=== PATIENT | female | born 1955 | race Caucasian/White ===

== ENCOUNTER 2020-03-16 10:54 | Inpatient (IN) | payer BC ==
[~2020-03-16] VITALS: Ht 170.2 cm; Wt 63.5 kg
--- NOTE | 2020-03-16 11:02 | NUR ---
DR KOO AT [facility] FOR EVAL.
[2020-03-16] MEDS ORDERED: LISI-607 PO (11:12)
[2020-03-16] MEDS ORDERED: AMLO5TAB9 PO (11:12)
[2020-03-16] MEDS ORDERED: TEMA15CA PO (11:12)
[2020-03-16] MEDS ORDERED: VICODIN PO (11:12)
--- NOTE | 2020-03-16 11:33 | NUR ---
Nasal COVID swab collected and sent to LAB.
[2020-03-16] MEDS ORDERED: ONDANSETRON 4 MG/2 ML VIAL ONE (11:34)
[2020-03-16] MEDS ORDERED: MORPHINE SULFATE 4 MG/1 ML DISP.SYRIN ONE ×2 (11:34→12:34)
--- NOTE | 2020-03-16 11:43 | NUR ---
Dr Nelson, surgeon at the bedside. Pt signed consent for surgery.
[2020-03-16 11:47] LABS: *BILIRUBIN,URIN NEGATIVE (NEGATIVE); *BLOOD, URINE NEGATIVE (NEGATIVE); *CLARITY,URINE CLEAR (CLEAR); *COLOR,URINE YELLOW (YELLOW); *KETONES,URINE NEGATIVE (NEGATIVE); LEUKOCYTE ESTERASE ,URINE NEGATIVE (NEGATIVE); NITRITE, URINE NEGATIVE (NEGATIVE); UGLUCOSE NEGATIVE (NEGATIVE)
[2020-03-16 11:57] LABS: BASOPHILS % (AUTO) 1.1 % (0.0-2.0); EOSINOPHILS # (AUTO) 0.3 K/uL (0.0-0.7); HEMATOCRIT 36.5 % (31.2-41.9); HEMOGLOBIN 12.2 g/dL (10.9-14.3); LYMPHOCYTES # (AUTO) 1.3 K/uL (20.0-40.0); LYMPHOCYTES % (AUTO) 30.4 % (20.5-51.5); MEAN CORPUSCULAR HGB CONC 34 g/dL (32.3-35.6); MEAN CORPUSCULAR VOLUME 95.5 fL (75.5-95.3); MONOCYTES # (AUTO) 0.5 K/uL (2.0-10.0); MONOCYTES % (AUTO) 12.1 % (0.0-11.0); NEUTROPHILS % (AUTO) 49.4 % (38.5-71.5); PLATELET COUNT (AUTO) 202 K/uL (179-408); RED BLOOD CELL COUNT(AUTO) 3.82 MIL/uL (3.63-4.92); WHITE BLOOD COUNT (AUTO) 4.1 K/uL (3.8-11.8)
[2020-03-16] MEDS ORDERED: ONDANSETRON 4 MG/2 ML VIAL IV ONE ×2 (12:00→13:00)
[2020-03-16] MEDS ORDERED: MORPHINE SULFATE 4 MG/1 ML DISP.SYRIN IV ONE ×2 (12:00→12:30)
[2020-03-16 12:06] LABS: CREATININE 0.7 mg/dL (0.6-1.3); POTASSIUM 3.9 mmol/L (3.5-5.1)
--- NOTE | 2020-03-16 12:24 | NUR ---
Report given to ALEXANDRO James by ALEXANDRO Guerrero.
[2020-03-16] MEDS ORDERED: SEVOFLURANE 250 ML BOTTLE IH ONE (13:00)
[2020-03-16] MEDS ORDERED: IV LACTATED RINGERS SOLUTION 1,000 ML BAG IV ONE (13:00)
[2020-03-16] MEDS ORDERED: PROPOFOL 200 MG/20 ML BOTTLE IV ONE (13:00)
[2020-03-16] MEDS ORDERED: DEXAMETHASONE SOD PHOSPHATE 4 MG INJ IV ONE (13:00)
[2020-03-16] MEDS ORDERED: EPHEDRINE SULFATE 50 MG/ML AMPUL IM ONE (13:00)
[2020-03-16] MEDS ORDERED: LIDOCAINE-MPF 2% 5 ML VIAL IJ ONE (13:00)
[2020-03-16] MEDS ORDERED: POLYMYXIN B SULFATE 500,000 UNITS, BACITRACIN 50,000 UNITS, NORMAL SALINE 20 ML MC ONE ×3 (13:00)
[2020-03-16] MEDS ORDERED: KETOROLAC TROMETHAMINE 30 MG INJ IM ONE (13:00)
[2020-03-16] MEDS ORDERED: IV NORMAL SALINE 1000 ML BAG IV ONE (13:00)
--- NOTE | 2020-03-16 13:07 | NUR ---
Anup anna in [facility] - 03/16/20 at 1352 by MALIK pRBC started, VSS, will continue to monitor throughout initial administration.
--- NOTE | 2020-03-16 13:16 | NUR ---
Patient transported to OR in stable condition.
[2020-03-16] MEDS ORDERED: MIDAZOLAM HCL 10 MG/2 ML VIAL ONE (13:20)
[2020-03-16] MEDS ORDERED: FENTANYL CITRATE 250 MCG/5 ML AMPUL ONE (13:20)
[2020-03-16] MEDS ORDERED: SEVOFLURANE 250 ML BOTTLE ONE (13:20)
[2020-03-16] MEDS ORDERED: FLUMAZENIL 0.5 MG/5 ML VIAL ONE (13:25)
[2020-03-16] MEDS ORDERED: CLINDAMYCIN PHOSPHATE 600 MG/4 ML VIAL ONE (13:33)
[2020-03-16] MEDS ORDERED: BACITRACIN ZINC OINT 15 GM TUBE ONE (13:39)
[2020-03-16] MEDS ORDERED: BUPIVACAINE PF 0.5% 30 ML VIAL ONE (13:39)
[2020-03-16] MEDS ORDERED: VANCOMYCIN HCL 500 MG VIAL ONE (14:45)
[2020-03-16] MEDS ORDERED: FENTANYL CITRATE 100 MCG/2 ML AMPUL ONE (15:16)
[2020-03-16] MEDS ORDERED: HYDROMORPHONE 1 MG/1 ML DISP.SYRIN ONE ×3 (15:24→15:44)
[2020-03-16 16:13] LABS: BACTERIA,URINE NONE SEEN /HPF (NONE SEEN); RBC,URINE 0-3 /HPF (0-3); SQUAMOUS EPITHELIAL CELL,UR FEW /HPF (NONE SEEN); WBC,URINE 0-3 /HPF (0-3)
[2020-03-16 17:00] VITALS: BP 167/85
[2020-03-16] MEDS: HYDROMORPHONE 1 MG/1 ML DISP.SYRIN IV PRN ×3 (18:24→23:43)
--- NOTE | 2020-03-16 19:30 | NUR ---
RECEIVED PT IN NO ACUTE DISTRESS. IV INTACT.PT COMPLAINING OF THE SURGICAL SITE PAIN. SAFETY AND COMFORT PROVIDED. WILL CONTINUE TO MONITOR.
[2020-03-16] MEDS: OXYCODONE/APAP 5-325 MG TABLET PO PRN ×2 (19:44→22:39)
[2020-03-16 20:37] VITALS: BP 127/58
--- NOTE | 2020-03-17 00:30 | NUR ---
HANDS OFF REPORT TO [facility]. PT IN NO ACUTE DISTRESS. PT COMPLAINING OF BACK AND RIGHT MIDDLE FINGER PAIN. PT GIVEN DILAUDID PRN AND PERCOCET PRN. PT TOLERATED IT WELL. VITAL SIGNS WITHIN NORMAL LIMIT. SAFETY AND COMFORT PROVIDED. WILL CONTINUE TO MONITOR.
[2020-03-17] MEDS: TEMAZEPAM 15 MG CAPSULE PO PRN ×2 (00:46→23:20)
[2020-03-17] MEDS: OXYCODONE/APAP 5-325 MG TABLET PO PRN ×7 (01:55→21:54)
[2020-03-17 04:00] VITALS: BP 163/90
[2020-03-17] MEDS: HYDROMORPHONE 1 MG/1 ML DISP.SYRIN IV PRN ×6 (04:11→20:27)
--- NOTE | 2020-03-17 05:18 | NUR ---
DILAUDID AND PERCOCET,PROVIDING ADEQUATE RELIEF OF PAIN, ICE PACK APPLIED TO AFFECTED AREA.
[2020-03-17 08:00] VITALS: BP 147/81
--- NOTE | 2020-03-17 08:00 | NUR ---
Pt in bed awake AOx4, O2 @ 2L with no SOB or distress noted at this time. Right hand bandaged, with full circulation, per pt right middle finger feels more numb than the left one. Applied new ice pack and elevated on pillow. Dilaudid PRN given as ordered. No other complaints at this time. Bed locked in lowest position with siderails 2x up. Call light and phone within reach
[2020-03-17] MEDS ORDERED: TEMAZEPAM 15 MG CAPSULE PO PRN (11:15)
[2020-03-17 12:51] VITALS: BP 156/76
[2020-03-17] MEDS ORDERED: LISINOPRIL 5 MG TABLET PO ONE (13:15)
[2020-03-17] MEDS ORDERED: AMLODIPINE 5 MG TABLET PO ONE ×2 (13:15→21:00)
[2020-03-17 16:00] VITALS: BP 153/78
[2020-03-17] MEDS ORDERED: DOCUSATE SODIUM 100 MG CAPSULE PO PRN (18:00)
[2020-03-17] MEDS ORDERED: RAMIPRIL 5 MG CAPSULE PO SCH (18:00)
--- NOTE | 2020-03-17 18:38 | NUR ---
Pt in bed awake AOx4, on O2 @ 2L NC with no SOB or distress noted at this time. Complaining of pain on middle finger, pain management given, and ice pack applied, with relief. Ambulated to bathroom. Bed locked in lowest position with siderails 2x up. Call light and phone within reach
--- NOTE | 2020-03-17 19:30 | NUR ---
Received patient in bed , alert x4 with O2 inhalation @ 2LPM via Nasal cannula, c/o pain on right middle finger throbbing pain 9 out 10, RT middle finger noted with dressing intact.IV line in place on left forearm 20 g, no s/s of infiltration.Encouraged Patient to elevate and continue to apply ice pack on Rt middle finger. PRN meds given with relief.Call light with in reach.Will continue to monitor.
[2020-03-17 20:09] VITALS: BP 160/77
[2020-03-17] MEDS ORDERED: RAMIPRIL 5 MG CAPSULE PO ONE (21:00)
[2020-03-18] MEDS: HYDROMORPHONE 1 MG/1 ML DISP.SYRIN IV PRN ×5 (02:10→15:18)
[2020-03-18] MEDS: OXYCODONE/APAP 5-325 MG TABLET PO PRN ×2 (03:51→17:45)
[2020-03-18 04:06] VITALS: BP 141/82
--- NOTE | 2020-03-18 07:00 | NUR ---
Patient awake ambulates to the bathroom , c/o throbbing pain on right middle finger,PRN medication given.Patient slept intermittently d/t pain .Continue to encourage to elevate Rt hand and ice pack applied. All needs are met .call light with in reach.
[2020-03-18] MEDS ORDERED: AMLODIPINE 5 MG TABLET PO SCH (09:00)
[2020-03-18] MEDS ORDERED: RAMIPRIL 5 MG CAPSULE PO SCH (09:00)
[2020-03-18] MEDS ORDERED: LISINOPRIL 5 MG TABLET PO SCH (09:00)
[2020-03-18] MEDS: RAMIPRIL 5 MG CAPSULE PO SCH ×2 (09:05→17:14)
[2020-03-18] MEDS: AMLODIPINE 5 MG TABLET PO SCH ×2 (09:05→17:15)
[2020-03-18 11:25] VITALS: BP 144/72
--- NOTE | 2020-03-18 14:07 | NUR ---
Received patient resting in bed, she is awake, alert and oriented time 4. Patient is saturating at 99% on room air with no sign of respiratory distress at this time so will recommend discontinuing O2. Patient reports pain in right hand, with provide pain medication as ordered. IV is left AC 20 gauge hep lock. Patient has dressing on right hand status post ORIF of the right middle finger. Recommendations to patient is to continue to elevate right hand and ice as needed. Safety precautions in place, bed in the lowest position and locked with call light and belongings within reach. Will continue to monitor
[2020-03-18 15:35] VITALS: BP 144/70
[2020-03-18 17:15] VITALS: BP 144/70
--- NOTE | 2020-03-18 17:57 | NUR ---
Patient left in stable condition with her Dr Turner Nelson in private vehicle. Patient showed no sign of respiratory distress, saturating at 97% on room air. Patient left with all her belongings. Discharge instruction and packet was given.
== END 2020-03-18 18:00 | disposition home or self-care (01) | DRG 496 ==
LOC: ER 10:54 → MEDSURG3 13:02
PROVIDERS: ADMIT Nurse Practitioner Acute Care; ATTEND Nurse Practitioner Acute Care
PROC: 0PW Upper Bones, Revision (ICD-10-PCS; principal; 2020-03-16)
DX: T84.220A Displacement of internal fixation device of bones of hand and fingers, initial encounter (principal); E87.1 Hypo-osmolality and hyponatremia; S62.612A Displaced fracture of proximal phalanx of right middle finger, initial encounter for closed fracture; W22.8XXA Striking against or struck by other objects, initial encounter; Y92.89 Other specified places as the place of occurrence of the external cause; I10 Essential (primary) hypertension; Z87.891 Personal history of nicotine dependence; Z98.1 Arthrodesis status; V89.2XXS Person injured in unspecified motor-vehicle accident, traffic, sequela; Z98.890 Other specified postprocedural states
CPT/HCPCS: 36415; 85025; 85610; 86850; 86900; 86901; 93005; A4663; C1713; G0378; J1100; J1170; J1885; J2250; J2270; J2405; J3010; J3370; J3490; J7030; J7120

== ENCOUNTER 2020-06-08 14:44 | Inpatient (IN) | payer BC ==
[~2020-06-08] VITALS: Ht 170.2 cm; Wt 63.5 kg
[~2020-06-08 14:44] MED LIST: AMLO-212 PO; LISI-607 PO; TEMA15CA PO; VICODIN PO
--- NOTE | 2020-06-08 15:05 | NUR ---
RECEIVED PATIENT A DIRECT ADMIT FROM [facility]. ALERT, ORIENTED X 4. VSS. CASTRO CATHETER PATENT. IV ON LEFT FOREARM 18G, FLUSHED AND PATENT. SAFETY PRECAUTIONS IN PLACE. PRE OP REQUIREMENTS MET. PRE OP CHECKLIST DONE. NOTIFIED MD OF PATIENT ARRIVAL AND SURGERY TODAY. SURGEON SPOKE TO PATIENT - SURGICAL CONSENT AND BLOOD CONSENT SIGNED AND IN CHART. OR STAFF AT BEDSIDE.
[2020-06-08] MEDS ORDERED: OXYC10TA59 PO (15:17)
[2020-06-08 15:30] VITALS: BP 142/72
[2020-06-08] MEDS ORDERED: MIDAZOLAM HCL 2 MG/2 ML VIAL ONE (15:43)
[2020-06-08] MEDS ORDERED: FENTANYL CITRATE 250 MCG/5 ML AMPUL ONE (15:44)
[2020-06-08] MEDS ORDERED: POLYMYXIN B SULFATE 500,000 UNITS, BACITRACIN 50,000 UNITS, NORMAL SALINE 20 ML MC ONE ×3 (15:45)
[2020-06-08] MEDS ORDERED: HYDROMORPHONE 2 MG/1 ML DISP.SYRIN ONE (15:45)
[2020-06-08] MEDS ORDERED: ROCURONIUM BROMIDE 50 MG/5 ML VIAL ONE (15:46)
[2020-06-08] MEDS ORDERED: CLINDAMYCIN PHOSPHATE 600 MG/4 ML VIAL ONE (15:47)
[2020-06-08] MEDS ORDERED: BUPIVACAINE PF 0.5% 30 ML VIAL ONE (15:48)
[2020-06-08] MEDS ORDERED: BACITRACIN ZINC OINT 15 GM TUBE ONE (15:49)
[2020-06-08] MEDS ORDERED: VANCOMYCIN HCL 500 MG VIAL ONE (15:49)
[2020-06-08] MEDS ORDERED: FENTANYL CITRATE 100 MCG/2 ML AMPUL ONE (17:16)
[2020-06-08] MEDS ORDERED: SEVOFLURANE 250 ML BOTTLE ONE (17:50)
[2020-06-08] MEDS ORDERED: VANCOMYCIN 1000 MG VIAL ONE (18:37)
[2020-06-08] MEDS ORDERED: HYDROMORPHONE 1 MG/1 ML DISP.SYRIN ONE (19:42)
[2020-06-08] MEDS ORDERED: ZOLPIDEM 5 MG TABLET PO PRN (19:45)
[2020-06-08 20:00] VITALS: BP 123/69
[2020-06-08] MEDS ORDERED: IV D5W-0.45% NS +20 KCL 1,000 ML IV PRN (20:00)
--- NOTE | 2020-06-08 20:05 | NUR ---
Received pt S/P surgery, IM nailing of the L HIP and ORIF of R. Thumb. Pt is AOX4, denies any acute distress or SOB. Dressing on the L hip is intact with no drainage and no s/s of infection noted. Iced pack was given to reduce swelling. Dressing on the R thumb is dry and intact. V/S stable on room air. PIV on LFA is intact with D5 1/2 NS KCL 20 Meqs running at 75cc. Galeana is intact and draining clear yellow urine. Safety measures in place. Bed low and locked in position. Call light within reach. Will continue with the plan of care.
[2020-06-08] MEDS: MORPHINE SULFATE 4 MG/1 ML DISP.SYRIN IV PRN (22:10)
[2020-06-09] MEDS: CLINDAMYCIN PHOSPHATE IV 600 MG in IV DEXTROSE 5% 100 ML IV SCH ×3 (00:07→17:24)
[2020-06-09] MEDS: MORPHINE SULFATE 4 MG/1 ML DISP.SYRIN IV PRN ×11 (00:11→23:57)
[2020-06-09 04:00] VITALS: BP 142/75
--- NOTE | 2020-06-09 06:13 | NUR ---
Pt slept intermittently through the night. Denies any SOB or acute distress at this time. V/S stable on room air. Dressing on R thumb/arm and L. Leg remained dry and intact. PIV on LFA is intact with D5 NS with KCl 20meqs running at 75cc. Galeana draining well. Fall precaution maintained. Pain managed effectively. Comfort care and needs attended. Safety measures in place. Call light within reach. Will endorse to oncoming nurse accordingly.
[2020-06-09 06:38] LABS: BASOPHILS % (AUTO) 0.2 % (0.0-2.0); HEMATOCRIT 27.5 % (31.2-41.9); HEMOGLOBIN 9.3 g/dL (10.9-14.3); LYMPHOCYTES # (AUTO) 0.9 K/uL (20.0-40.0); LYMPHOCYTES % (AUTO) 11.2 % (20.5-51.5); MEAN CORPUSCULAR HEMOGLOBIN 32.8 uug (24.7-32.8); MEAN CORPUSCULAR HGB CONC 34 g/dL (32.3-35.6); MEAN CORPUSCULAR VOLUME 97.5 fL (75.5-95.3); MONOCYTES # (AUTO) 1.1 K/uL (2.0-10.0); MONOCYTES % (AUTO) 13.3 % (0.0-11.0); NEUTROPHILS % (AUTO) 75.3 % (38.5-71.5); PLATELET COUNT (AUTO) 175 K/uL (179-408); RED BLOOD CELL COUNT(AUTO) 2.82 MIL/uL (3.63-4.92); WHITE BLOOD COUNT (AUTO) 7.9 K/uL (3.8-11.8)
[2020-06-09 06:46] LABS: BILIRUBIN,TOTAL 0.6 mg/dL (0.2-1.0); CREATININE 0.8 mg/dL (0.6-1.3); MAGNESIUM 2.4 mg/dL (1.8-2.4); PHOSPHOROUS 2.9 mg/dL (2.5-4.9); POTASSIUM 4.6 mmol/L (3.5-5.1)
--- NOTE | 2020-06-09 07:30 | NUR ---
Received patient resting in bed awake, alert and oriented times 4. No sign of distress noted at this time. Patient reports pain, will check eMAR to see what patient has available. Patient is running D5 1/2 NS with 20 mEQ of KCL in left FA 20 gauge. Safety precautions are in place with call light and belongings within reach. Will continue to monitor.
--- NOTE | 2020-06-09 10:31 | NUR ---
Patient in with PT. Order OOB, with PT 25% weight bearing on left leg. Patient complained of pain, gave Morphine as ordered. Will continue to monitor.
[2020-06-09 11:20] VITALS: BP 132/73
[2020-06-09] MEDS: IV NS 1000 ML 1,000 ML IV PRN (11:41)
[2020-06-09 16:00] VITALS: BP 187/75
[2020-06-09] MEDS: CARISOPRODOL 350 MG TABLET PO PRN ×2 (17:26→21:12)
[2020-06-09] MEDS ORDERED: TEMAZEPAM 15 MG CAPSULE PO PRN (18:45)
--- NOTE | 2020-06-09 19:00 | NUR ---
Received patient from AM nurse. VSS. Assessed IV and patient. Non remarkable findings relative to this patient. Patient reports pain and i will administer PRN Morphine per MD orders. Will continue to assess and monitor.
--- NOTE | 2020-06-09 20:00 | NUR ---
Morphine administered and reassessed patient. Patient reports pain is "better". Will continue to monitor and assess.
[2020-06-09 20:06] VITALS: BP 165/70
[2020-06-09] MEDS: TEMAZEPAM 15 MG CAPSULE PO PRN (21:12)
--- NOTE | 2020-06-09 21:55 | NUR ---
Patient reported pain. PRN Morphine given. I took vitals before administration: BP was 167/78, Pulse: 98, O2 Sat: 98%. Will monitor and assess after administration.
--- NOTE | 2020-06-09 22:36 | NUR ---
Patient resting upon assessment. VSS. Patient reports lessening of pain. Warm blanket given. Afebrile. IV fluids running per MD order. Will continue to monitor and assess.
[2020-06-10] VITALS (7 sets, daily range): BP systolic 134–175; BP diastolic 57–74
--- NOTE | 2020-06-10 00:10 | NUR ---
Patient resting in bed. VSS. Patient still reports pain, requests PRN Morphine. Respirations 18 at time of administration. Afebrile. Will continue to monitor and assess.
[2020-06-10] MEDS: MORPHINE SULFATE 4 MG/1 ML DISP.SYRIN IV PRN ×8 (02:05→22:32)
[2020-06-10] MEDS: IV NS 1000 ML 1,000 ML IV PRN (02:10)
[2020-06-10] MEDS: OXYCODONE HCL 5 MG TABLET PO PRN ×3 (03:41→20:43)
--- NOTE | 2020-06-10 06:19 | NUR ---
Patient asleep in bed. Reports less pain than previously reported. HOB elevated, no SOB, bed at lowest position, side rails up X2, IV fluids running at 75cc/hr. Patient is very pleasant. Will endorse to oncoming nurse.
[2020-06-10 06:42] LABS: BASOPHILS % (AUTO) 0.6 % (0.0-2.0); EOSINOPHILS # (AUTO) 0.5 K/uL (0.0-0.7); EOSINOPHILS % (AUTO) 6.9 % (0.0-7.0); HEMOGLOBIN 7.7 g/dL (10.9-14.3); LYMPHOCYTES # (AUTO) 1.3 K/uL (20.0-40.0); LYMPHOCYTES % (AUTO) 18.8 % (20.5-51.5); MEAN CORPUSCULAR HGB CONC 35 g/dL (32.3-35.6); MEAN CORPUSCULAR VOLUME 94.1 fL (75.5-95.3); MONOCYTES # (AUTO) 0.7 K/uL (2.0-10.0); MONOCYTES % (AUTO) 10.3 % (0.0-11.0); NEUTROPHILS # (AUTO) 4.5 K/uL (1.8-8.9); NEUTROPHILS % (AUTO) 63.4 % (38.5-71.5); PLATELET COUNT (AUTO) 162 K/uL (179-408); WHITE BLOOD COUNT (AUTO) 7.1 K/uL (3.8-11.8)
[2020-06-10 06:50] LABS: RED BLOOD CELL COUNT(AUTO) 2.34 MIL/uL (3.63-4.92)
[2020-06-10 06:51] LABS: CREATININE 0.6 mg/dL (0.6-1.3); MAGNESIUM 2.1 mg/dL (1.8-2.4); PHOSPHOROUS 2.8 mg/dL (2.5-4.9); POTASSIUM 4.4 mmol/L (3.5-5.1); URIC ACID 3.1 mg/dL (2.6-6.0)
[2020-06-10 06:56] LABS: THYROID STIMULATING HORMONE 2.225 mIU/mL (0.358-3.740)
--- NOTE | 2020-06-10 07:30 | NUR ---
Received patient resting in bed awake, alert and oriented times 4. No sign of distress noted at this time. Patient reports pain, will check eMAR to see what patient has available. Patient is running normal saline via a 20 gauge catheter. Safety precautions are in place with call light and belongings within reach. Will continue to monitor.
[2020-06-10] MEDS: LISINOPRIL 5 MG TABLET PO SCH ×2 (09:24→17:48)
[2020-06-10] MEDS: AMLODIPINE 5 MG TABLET PO SCH ×2 (09:24→17:48)
[2020-06-10] MEDS: CARISOPRODOL 350 MG TABLET PO PRN ×2 (09:57→16:28)
--- NOTE | 2020-06-10 16:10 | NUR ---
Lab called to say that patient has antibodies and the specimen will need to be sent out to the [facility] and they are not sure about the turn around time. Will continue to monitor.
--- NOTE | 2020-06-10 19:03 | NUR ---
Patient is resting comfortably in bed with no sign of distress noted at this time. All medications given as ordered. Patient has a unit of blood at the lab ready to be picked up and infused at 2200. All safety measures are in place with call light and belongings within reach. Will endorse to the oncoming nurse.
--- NOTE | 2020-06-10 20:10 | NUR ---
Received pt in bed, awake and alert. Does not report any respiratory distress. Reports minor pain in left hip. Received morphine on day shift at 1850. Will continue to monitor.
--- NOTE | 2020-06-10 23:13 | NUR ---
Blood transfusion infusion. Pt tolerating well. No fever, SOB or any pain. Will continue to monitor.
[2020-06-10] MEDS: TEMAZEPAM 15 MG CAPSULE PO PRN (23:20)
[2020-06-11 00:28] VITALS: BP 150/79
--- NOTE | 2020-06-11 01:08 | NUR ---
Blood transfusion ended. Pt tolerated infusion well. Denies any SOB, chest pain or discomfort. No fever. Will continue to monitor.
[2020-06-11 01:33] VITALS: BP 154/74
[2020-06-11] MEDS: MORPHINE SULFATE 4 MG/1 ML DISP.SYRIN IV PRN ×6 (02:38→17:11)
[2020-06-11] MEDS: CARISOPRODOL 350 MG TABLET PO PRN ×2 (02:52→08:29)
[2020-06-11 04:40] VITALS: BP 161/79
[2020-06-11] MEDS: OXYCODONE HCL 5 MG TABLET PO PRN ×2 (05:06→12:27)
--- NOTE | 2020-06-11 06:15 | NUR ---
Patient slept intermittently throughout the night. Denies any chest pain or SOB. Pt tolerated blood transfusion well with no complications. Pain meds given periodically and patient tolerated all medications given. Safety and comfort provided. Will endorse to day shift.
[2020-06-11 06:43] LABS: BASOPHILS % (AUTO) 0.4 % (0.0-2.0); EOSINOPHILS # (AUTO) 0.6 K/uL (0.0-0.7); EOSINOPHILS % (AUTO) 8.5 % (0.0-7.0); HEMATOCRIT 26.6 % (31.2-41.9); HEMOGLOBIN 9.3 g/dL (10.9-14.3); LYMPHOCYTES # (AUTO) 1.4 K/uL (20.0-40.0); LYMPHOCYTES % (AUTO) 17.9 % (20.5-51.5); MEAN CORPUSCULAR HEMOGLOBIN 33.1 uug (24.7-32.8); MEAN CORPUSCULAR HGB CONC 35 g/dL (32.3-35.6); MEAN CORPUSCULAR VOLUME 94.4 fL (75.5-95.3); MONOCYTES # (AUTO) 0.7 K/uL (2.0-10.0); MONOCYTES % (AUTO) 8.9 % (0.0-11.0); NEUTROPHILS # (AUTO) 4.9 K/uL (1.8-8.9); NEUTROPHILS % (AUTO) 64.3 % (38.5-71.5); PLATELET COUNT (AUTO) 186 K/uL (179-408); RED BLOOD CELL COUNT(AUTO) 2.82 MIL/uL (3.63-4.92); WHITE BLOOD COUNT (AUTO) 7.6 K/uL (3.8-11.8)
[2020-06-11 06:54] LABS: CREATININE 0.5 mg/dL (0.6-1.3); PHOSPHOROUS 4.5 mg/dL (2.5-4.9); POTASSIUM 4.6 mmol/L (3.5-5.1)
[2020-06-11] MEDS: AMLODIPINE 5 MG TABLET PO SCH ×2 (08:18→16:54)
[2020-06-11] MEDS: LISINOPRIL 5 MG TABLET PO SCH ×2 (08:18→16:55)
--- NOTE | 2020-06-11 08:25 | NUR ---
Patient awake, alert, oriented x 4, not in any form of distress on room air. Complained of left hip pain and given PRN pain medication as ordered. Left upper midline in place and patent, no signs of infection. Galeana catheter intact and patent draining clear yellow urine. Needs attended to promptly. Call light placed within patient's reach.
[2020-06-11] MEDS ORDERED: NITROFURANTOIN/NITROFURAN MAC 100 MG CAPSULE PO SCH (09:45)
--- NOTE | 2020-06-11 12:00 | NUR ---
Patient seen and examined by Liat Carbajal WILD LIFE PHOTOGRAPHER, informed WILD LIFE PHOTOGRAPHER regarding no BM since admission and per WILD LIFE PHOTOGRAPHER she will put in orders. Patient assisted by physical therapist for transfer to the chair for lunch.
[2020-06-11 15:26] VITALS: BP 135/72
[2020-06-11] MEDS ORDERED: NITR100C11 PO (15:58)
[2020-06-11] MEDS ORDERED: Morphine Sulfate Inj IV (15:58)
[2020-06-11] MEDS ORDERED: CARI350T27 PO (15:58)
[2020-06-11] MEDS ORDERED: OXYC5TAB3 PO (15:58)
[2020-06-11 16:55] VITALS: BP 149/81
[2020-06-11] MEDS ORDERED: INFLUENZA VACCINE 2020-2021 0.5 ML DISP.SYRIN IM ONE (17:30)
--- NOTE | 2020-06-11 17:33 | NUR ---
PATIENT IS ALERT, ORIENTED X4, VERBALLY RESPONSIVE, NO SOB, RESP EVEN NONLABORED, SKIN WARM AND DRY TO TOUCH, BEING DISCHARGED TO ACUTE REHAB, FOR REHAB SERVICES, PATIENT UNDERSTOOD THE DISCHARGED TEACHING AND INSTRUCTIONS . CASTRO INTACT, MIDLINE ON LEFT UPPER ARM IS INTACT, BELONGINGS ARE ACCOUNTED AND SIGNED, PER PATIENT SHE HAS EVERYTHING, SHE SENDS STUFF HOME AND HER DR RODRÍGUEZ BRINGS IT BACK WHATEVER SHE NEEDS. INSTRUCTED PATIENT TO LET THE NURSES KNOW IF THERE IS ANYTHING NEED TO BE PUT IN SAFE, PATIENT VERBALIZED UNDERSTANDING OF IT. NO NEW SKIN ISSUES NOTED, LEFT HIP INCISION SITE IS CLEAN AND DRY, DRESSING INTACT.
[2020-06-11] MEDS ORDERED: DEXAMETHASONE SOD PHOSPHATE 4 MG INJ IV ONE (17:39)
[2020-06-11] MEDS ORDERED: SEVOFLURANE 250 ML BOTTLE IH ONE (17:39)
[2020-06-11] MEDS ORDERED: GLYCOPYRROLATE 0.2 MG/ML VIAL IJ ONE (17:39)
[2020-06-11] MEDS ORDERED: CLINDAMYCIN PHOSPHATE 600 MG/4 ML VIAL IM ONE (17:39)
[2020-06-11] MEDS ORDERED: IV NORMAL SALINE 1000 ML BAG IV ONE (17:39)
[2020-06-11] MEDS ORDERED: IV LACTATED RINGERS SOLUTION 1,000 ML BAG IV ONE (17:39)
[2020-06-11] MEDS ORDERED: PROPOFOL 200 MG/20 ML BOTTLE IV ONE (17:39)
[2020-06-11] MEDS ORDERED: NEOSTIGMINE METHYLSULFATE 10 MG/10 ML VIAL IM ONE (17:39)
[2020-06-11] MEDS ORDERED: KETOROLAC TROMETHAMINE 30 MG INJ IM ONE (17:39)
[2020-06-11] MEDS ORDERED: ONDANSETRON 4 MG/2 ML VIAL IV ONE (17:39)
== END 2020-06-11 17:40 | DRG 481 ==
LOC: MEDSURG3 14:44
PROVIDERS: ADMIT Internal Medicine; ATTEND Registered Nurse
PROC: 0QS706Z Reposition Left Upper Femur with Intramedullary Internal Fixation Device, Open Approach (ICD-10-PCS; principal; 2020-06-08)
PROC: 0PSP04Z Reposition Right Metacarpal with Internal Fixation Device, Open Approach (ICD-10-PCS; 2020-06-08)
PROC: 30233N1 Transfusion of Nonautologous Red Blood Cells into Peripheral Vein, Percutaneous Approach (ICD-10-PCS; 2020-06-10)
PROC: 05HY33Z Insertion of Infusion Device into Upper Vein, Percutaneous Approach (ICD-10-PCS; 2020-06-10)
DX: S72.142A Displaced intertrochanteric fracture of left femur, initial encounter for closed fracture (principal); N39.0 Urinary tract infection, site not specified; D68.69 Other thrombophilia; E22.2 Syndrome of inappropriate secretion of antidiuretic hormone; S62.211A Bennett's fracture, right hand, initial encounter for closed fracture; Z88.0 Allergy status to penicillin; Z88.2 Allergy status to sulfonamides; G89.4 Chronic pain syndrome; M96.1 Postlaminectomy syndrome, not elsewhere classified; Z74.09 Other reduced mobility; B96.20 Unspecified Escherichia coli [E. coli] as the cause of diseases classified elsewhere; I10 Essential (primary) hypertension; Z87.891 Personal history of nicotine dependence; Z98.1 Arthrodesis status; W19.XXXA Unspecified fall, initial encounter; Y93.9 Activity, unspecified; Y92.89 Other specified places as the place of occurrence of the external cause; Z79.891 Long term (current) use of opiate analgesic; R94.31 Abnormal electrocardiogram [ECG] [EKG]; V89.2XXS Person injured in unspecified motor-vehicle accident, traffic, sequela; D64.9 Anemia, unspecified
CPT/HCPCS: 36415; 73140; 73503; 83735; 84100; 84300; 84443; 84550; 85025; 86850; 86900; 86901; 86920; 87086; 90686; 93005; A4649; A4663; C1713; G0378; J1100; J1170; J1885; J2250; J2270; J2405; J3010; J3370; J3490; J7030; J7040; J7060; J7120; P9016-BL; P9021

== ENCOUNTER 2020-07-28 06:28 | Outpatient (CLI) | payer BC ==
[~2020-07-28 06:28] MED LIST changes: +BISA10SU61 RC; +CARI350T PO; +CARI350T27 PO; +DOCU-141 PO; +HYDR1SYR4 IJ; +MAGN400O6 PO; +NITR100C11 PO; +OXYC-133 PO; +OXYC5TAB3 PO; +SENN-261 PO; -VICODIN PO
== END 2020-07-28 23:59 | disposition home or self-care (01) ==
LOC: LAB 06:28
PROVIDERS: ATTEND Orthopaedic Surgery Sports Medicine
DX: Z01.812 Encounter for preprocedural laboratory examination (principal); Z20.828 Contact with and (suspected) exposure to other viral communicable diseases; T84.84XD Pain due to internal orthopedic prosthetic devices, implants and grafts, subsequent encounter

== ENCOUNTER 2020-07-29 08:06 | Day surgery (SDC) | payer BC ==
[2020-07-29] MEDS ORDERED: CEFAZOLIN 1 G VIAL MC ONE (08:07)
[2020-07-29] MEDS ORDERED: SEVOFLURANE 250 ML BOTTLE IH ONE (08:07)
[2020-07-29] MEDS ORDERED: DEXAMETHASONE SOD PHOSPHATE 4 MG INJ IV ONE (08:07)
[2020-07-29] MEDS ORDERED: LIDOCAINE-MPF 2% 5 ML VIAL MC ONE (08:07)
[2020-07-29] MEDS ORDERED: PROPOFOL 200 MG/20 ML BOTTLE IV ONE (08:07)
[2020-07-29] MEDS ORDERED: KETOROLAC TROMETHAMINE 30 MG INJ IM ONE (08:07)
[2020-07-29] MEDS ORDERED: ONDANSETRON 4 MG/2 ML VIAL IV ONE (08:07)
[2020-07-29 08:38] LABS: BASOPHILS # (AUTO) 0.1 K/uL (0.0-8.0); BASOPHILS % (AUTO) 1.1 % (0.0-2.0); EOSINOPHILS # (AUTO) 0.2 K/uL (0.0-0.7); EOSINOPHILS % (AUTO) 3.5 % (0.0-7.0); HEMATOCRIT 39.9 % (31.2-41.9); HEMOGLOBIN 13.4 g/dL (10.9-14.3); LYMPHOCYTES # (AUTO) 1.4 K/uL (20.0-40.0); LYMPHOCYTES % (AUTO) 20.7 % (20.5-51.5); MEAN CORPUSCULAR HEMOGLOBIN 29.7 uug (24.7-32.8); MEAN CORPUSCULAR HGB CONC 34 g/dL (32.3-35.6); MEAN CORPUSCULAR VOLUME 88.2 fL (75.5-95.3); MONOCYTES # (AUTO) 0.5 K/uL (2.0-10.0); MONOCYTES % (AUTO) 7.9 % (0.0-11.0); NEUTROPHILS # (AUTO) 4.6 K/uL (1.8-8.9); NEUTROPHILS % (AUTO) 66.8 % (38.5-71.5); PLATELET COUNT (AUTO) 401 K/uL (179-408); RED BLOOD CELL COUNT(AUTO) 4.52 MIL/uL (3.63-4.92); WHITE BLOOD COUNT (AUTO) 6.9 K/uL (3.8-11.8)
[2020-07-29 08:49] LABS: CREATININE 0.8 mg/dL (0.6-1.3); POTASSIUM 4.1 mmol/L (3.5-5.1)
[2020-07-29] MEDS ORDERED: BUPIVACAINE 0.25% 30 ML VIAL ONE (09:08)
[2020-07-29] MEDS ORDERED: BACITRACIN 50,000 UNITS VIAL ONE (09:08)
[2020-07-29] MEDS ORDERED: POLYMYXIN B SULFATE 500,000 UNITS VIAL ONE (09:08)
[2020-07-29] MEDS ORDERED: HYDROMORPHONE 2 MG/1 ML DISP.SYRIN ONE (09:35)
[2020-07-29] MEDS ORDERED: MIDAZOLAM HCL 2 MG/2 ML VIAL ONE (09:36)
[2020-07-29] MEDS ORDERED: SEVOFLURANE 250 ML BOTTLE ONE (10:27)
[2020-07-29] MEDS ORDERED: VANCOMYCIN 1000 MG VIAL ONE (11:29)
[2020-07-29] MEDS ORDERED: FENTANYL CITRATE 100 MCG/2 ML AMPUL ONE (12:16)
[2020-07-29] MEDS ORDERED: ONDANSETRON 4 MG/2 ML VIAL ONE (12:17)
[2020-07-29] MEDS ORDERED: HYDROMORPHONE 1 MG/1 ML DISP.SYRIN ONE (13:08)
[2020-07-29] MEDS ORDERED: HYDROCODONE/APAP 10-325 MG TABLET ONE (13:35)
[2020-07-29] MEDS ORDERED: OXYCODONE/APAP 5-325 MG TABLET ONE (16:10)
== END 2020-07-29 17:40 | disposition home or self-care (01) ==
LOC: DS 08:06
PROVIDERS: ATTEND Orthopaedic Surgery Sports Medicine
DX: S62.511A Displaced fracture of proximal phalanx of right thumb, initial encounter for closed fracture (principal); I10 Essential (primary) hypertension; Z87.440 Personal history of urinary (tract) infections; Z79.899 Other long term (current) drug therapy; Z98.890 Other specified postprocedural states; Z72.89 Other problems related to lifestyle; Z88.0 Allergy status to penicillin; Z88.1 Allergy status to other antibiotic agents; Z88.2 Allergy status to sulfonamides; Z88.8 Allergy status to other drugs, medicaments and biological substances; X58.XXXA Exposure to other specified factors, initial encounter; Y93.89 Activity, other specified; Y92.89 Other specified places as the place of occurrence of the external cause; Y99.8 Other external cause status
CPT/HCPCS: 20680; 26735; 36415; 73110; 76000; 80048; 85025; 85730; C1713; J0690; J1100; J1170 ×2; J1885; J2250; J2405 ×2; J3010; J3370; J3490 ×4; J7120; A4649; A4663

== ENCOUNTER 2020-10-27 07:10 | Outpatient (CLI) | payer BC ==
[~2020-10-27 07:10] MED LIST changes: -LISI-607 PO; +LISI-782 PO
== END 2020-10-27 23:59 | disposition home or self-care (01) ==
LOC: LAB 07:10
PROVIDERS: ATTEND Orthopaedic Surgery Sports Medicine
DX: Z01.812 Encounter for preprocedural laboratory examination (principal); Z20.822 Contact with and (suspected) exposure to COVID-19

== ENCOUNTER 2020-10-28 08:12 | Inpatient (IN) | payer BC ==
[~2020-10-28] VITALS: Ht 170.2 cm; Wt 63.5 kg
[~2020-10-28 08:12] MED LIST changes: +POLYMYXIN B SULFATE 500,000 UNITS, BACITRACIN 50,000 UNITS, NORMAL SALINE 20 ML MC ONE
[2020-10-28 09:03] LABS: CREATININE 0.8 mg/dL (0.6-1.3); POTASSIUM 4.8 mmol/L (3.5-5.1)
[2020-10-28 09:15] LABS: *BILIRUBIN,URIN NEGATIVE (NEGATIVE); *CLARITY,URINE CLOUDY (CLEAR); *COLOR,URINE YELLOW (YELLOW); *KETONES,URINE NEGATIVE (NEGATIVE); *UROBILINOGEN,URINE 0.2 E.U./dl (NORMAL); NITRITE, URINE NEGATIVE (NEGATIVE); PH,URINE 5.5 (5.0-8.0); UGLUCOSE NEGATIVE (NEGATIVE)
[2020-10-28 09:26] LABS: *BLOOD, URINE NEGATIVE (NEGATIVE); LEUKOCYTE ESTERASE ,URINE MODERATE (NEGATIVE)
[2020-10-28 09:27] LABS: WBC,URINE 50-80 /HPF (0-3)
[2020-10-28 09:28] LABS: BACTERIA,URINE MANY /HPF (NONE SEEN); MUCUS,URINE FEW /LPF (0-FEW); SQUAMOUS EPITHELIAL CELL,UR FEW /HPF (NONE SEEN)
[2020-10-28] MEDS ORDERED: HYDROMORPHONE 2 MG/1 ML DISP.SYRIN ONE (09:31)
[2020-10-28] MEDS ORDERED: MIDAZOLAM HCL 2 MG/2 ML VIAL ONE (09:31)
[2020-10-28 10:24] LABS: BASOPHILS # (AUTO) 0.1 K/uL (0.0-8.0); BASOPHILS % (AUTO) 0.9 % (0.0-2.0); EOSINOPHILS # (AUTO) 0.5 K/uL (0.0-0.7); EOSINOPHILS % (AUTO) 5.4 % (0.0-7.0); HEMATOCRIT 41.6 % (31.2-41.9); HEMOGLOBIN 14.1 g/dL (10.9-14.3); LYMPHOCYTES # (AUTO) 2.2 K/uL (20.0-40.0); LYMPHOCYTES % (AUTO) 24.1 % (20.5-51.5); MEAN CORPUSCULAR HEMOGLOBIN 31.8 uug (24.7-32.8); MEAN CORPUSCULAR HGB CONC 34 g/dL (32.3-35.6); MEAN CORPUSCULAR VOLUME 93.7 fL (75.5-95.3); MONOCYTES # (AUTO) 0.8 K/uL (2.0-10.0); MONOCYTES % (AUTO) 9.2 % (0.0-11.0); NEUTROPHILS # (AUTO) 5.5 K/uL (1.8-8.9); NEUTROPHILS % (AUTO) 60.4 % (38.5-71.5); PLATELET COUNT (AUTO) 324 K/uL (179-408); RED BLOOD CELL COUNT(AUTO) 4.44 MIL/uL (3.63-4.92)
[2020-10-28] MEDS ORDERED: VANCOMYCIN 1000 MG VIAL ONE (10:27)
[2020-10-28] MEDS ORDERED: BUPIVACAINE 0.25% 30 ML VIAL ONE (10:32)
[2020-10-28] MEDS ORDERED: HYDROMORPHONE 1 MG/1 ML DISP.SYRIN ONE ×2 (11:12→11:23)
--- NOTE | 2020-10-28 12:30 | NUR ---
PATIENT ADMITTED FROM RECOVERY ROOM SP LEFT HIP CHANGED OF SCREW BY DR RODRÍGUEZ, AWAKE ALERT AND ORIENTED X3 ABLE TO PARTICIPATE WITH ADMISSION ASSESSMENT. WILL NOTIFY DR RODRÍGUEZ OF ADMISSION
[2020-10-28] MEDS ORDERED: ONDANSETRON 4 MG/2 ML VIAL IV PRN (13:00)
[2020-10-28] MEDS ORDERED: IV D5W-0.45% NS +20 KCL 1,000 ML IV PRN (13:00)
[2020-10-28] MEDS ORDERED: IV LACTATED RINGERS SOLUTION 1,000 ML IV PRN (13:00)
[2020-10-28] MEDS ORDERED: HYDROCODONE/APAP 10-325 MG TABLET PO PRN (13:00)
[2020-10-28 13:05] VITALS: BP 119/64
[2020-10-28] MEDS: HYDROMORPHONE 1 MG/1 ML DISP.SYRIN IV PRN ×5 (14:11→23:49)
--- NOTE | 2020-10-28 14:30 | NUR ---
MEDICATED FOR PAIN LEFT HIP WITH DILAUDID, OBSERVED
--- NOTE | 2020-10-28 15:09 | NUR ---
DR RODRÍGUEZ NOTIFIED OF UA RESULTS AWAITING CALL BACK
[2020-10-28 15:14] VITALS: BP 118/57
[2020-10-28] MEDS: NITROFURANTOIN/NITROFURAN MAC 100 MG CAPSULE PO SCH (16:47)
[2020-10-28] MEDS ORDERED: CEFAZOLIN 1 G VIAL MC ONE (18:59)
[2020-10-28] MEDS ORDERED: KETOROLAC TROMETHAMINE 30 MG INJ IM ONE (18:59)
[2020-10-28] MEDS ORDERED: LIDOCAINE-MPF 2% 5 ML VIAL MC ONE (18:59)
[2020-10-28] MEDS ORDERED: DEXAMETHASONE SOD PHOSPHATE 4 MG INJ IV ONE (18:59)
[2020-10-28] MEDS ORDERED: PROPOFOL 200 MG/20 ML BOTTLE IV ONE (18:59)
[2020-10-28] MEDS ORDERED: ONDANSETRON 4 MG/2 ML VIAL IV ONE (18:59)
[2020-10-28] MEDS ORDERED: EPHEDRINE SULFATE 50 MG/ML AMPUL MC ONE (18:59)
[2020-10-28] MEDS ORDERED: SEVOFLURANE 250 ML BOTTLE IH ONE (18:59)
[2020-10-28 20:12] VITALS: BP 134/51
--- NOTE | 2020-10-29 01:20 | NUR ---
Patient alert x4.S/P left hip changed of screw .Surgical site with dressing intact. Ice pack applied.Patient on RA,no s/s of distress noted.C/o left hip pain .Medicated with dilaudid PRn every two hours. Pt ambulates to bathroom with assist. Iv on left wrist with IVF running well.Tolerated well.Safety measures in place.Call light with in reach.
[2020-10-29] MEDS: HYDROMORPHONE 1 MG/1 ML DISP.SYRIN IV PRN ×4 (02:37→10:44)
[2020-10-29 04:00] VITALS: BP 152/71
[2020-10-29 08:00] VITALS: BP 136/56
[2020-10-29] MEDS: NITROFURANTOIN/NITROFURAN MAC 100 MG CAPSULE PO SCH ×2 (08:00→16:57)
[2020-10-29] MEDS ORDERED: OXYCODONE HCL 5 MG TABLET PO PRN (09:45)
[2020-10-29] MEDS ORDERED: CARISOPRODOL 350 MG TABLET PO PRN (09:45)
[2020-10-29] MEDS ORDERED: BISACODYL 10 MG SUPP.RECT RC PRN (09:45)
[2020-10-29] MEDS ORDERED: MAGNESIUM HYDROXIDE 30 ML LIQUID UDC PO PRN (09:45)
[2020-10-29 11:07] VITALS: BP 144/65
--- NOTE | 2020-10-29 13:19 | NUR ---
RECEIVED PATIENT AWAKE, ALERT AND ORIENTED X 4. VSS. PATIENT COMPLAINED OF PAIN. GIVEN PRN DILAUDID ORDERED. SEEN BY PHYSICAL THERAPY. ABLE TO AMBULATE WITH FWW SBA. NO S/S OF DISTRESS OR SOB NOTED AT THIS TIME. SAFETY PRECAUTIONS IN PLACE. WILL CONTINUE TO MONITOR.
[2020-10-29 14:53] VITALS: BP 144/60
[2020-10-29 16:57] VITALS: BP 146/56
[2020-10-29] MEDS ORDERED: LISINOPRIL 5 MG TABLET PO SCH (17:00)
[2020-10-29] MEDS ORDERED: AMLODIPINE 5 MG TABLET PO SCH (17:00)
--- NOTE | 2020-10-29 19:22 | NUR ---
PATIENT DISCHARGED HOME. VSS. BELONGINGS RETURNED, INVENTORY LIST SIGNED. DISCUSSED DISCHARGE PLAN, VERBALIZED UNDERSTANDING. IV REMOVED, NO S/S OF BLEEDING. PATIENT BROUGHT DOWN VIA WHEELCHAIR.
[2020-10-29] MEDS ORDERED: TEMAZEPAM 15 MG CAPSULE PO SCH (21:00)
[2020-10-29] MEDS ORDERED: DOCUSATE SODIUM 100 MG CAPSULE PO SCH (21:00)
[2020-10-30] MEDS ORDERED: SENNOSIDES 1 TABLET PO SCH (09:00)
== END 2020-10-29 19:00 | disposition home or self-care (01) | DRG 481 ==
LOC: DS 08:12 → MEDSURG3 12:30 → OBSVTOIN 12:30 → UNDOADMIN 12:58 → MEDSURG3 12:58 → UNDOADMOB 13:07 → UNDODISOB 10-29 19:00
PROVIDERS: ADMIT Internal Medicine; ATTEND Internal Medicine
PROC: 0QP704Z Removal of Internal Fixation Device from Left Upper Femur, Open Approach (ICD-10-PCS; principal; 2020-10-28)
PROC: 0QH704Z Insertion of Internal Fixation Device into Left Upper Femur, Open Approach (ICD-10-PCS; 2020-10-28)
DX: T84.84XA Pain due to internal orthopedic prosthetic devices, implants and grafts, initial encounter (principal); E87.1 Hypo-osmolality and hyponatremia; E86.1 Hypovolemia; I10 Essential (primary) hypertension; Z87.891 Personal history of nicotine dependence; Y83.8 Other surgical procedures as the cause of abnormal reaction of the patient, or of later complication, without mention of misadventure at the time of the procedure; Y92.89 Other specified places as the place of occurrence of the external cause
CPT/HCPCS: 36415; 73503; 85025; 85730; 87077; 87086; 93005; A4649; G0378; J0690; J1100; J1170; J1885; J2250; J2405; J3370; J3490

== ENCOUNTER 2021-07-05 06:42 | Outpatient (CLI) | payer BC ==
[~2021-07-05 06:42] MED LIST changes: -POLYMYXIN B SULFATE 500,000 UNITS, BACITRACIN 50,000 UNITS, NORMAL SALINE 20 ML MC ONE
== END 2021-07-05 23:59 | disposition home or self-care (01) ==
LOC: LAB 06:42
PROVIDERS: ATTEND Orthopaedic Surgery Sports Medicine
DX: Z01.812 Encounter for preprocedural laboratory examination (principal); Z20.822 Contact with and (suspected) exposure to COVID-19

== ENCOUNTER 2021-07-07 07:53 | Inpatient (IN) | payer BC ==
[2021-07-07 08:37] LABS: HEMATOCRIT 41.8 % (31.2-41.9); MEAN CORPUSCULAR HEMOGLOBIN 33.7 uug (24.7-32.8); MEAN CORPUSCULAR VOLUME 97.3 fL (75.5-95.3); PLATELET COUNT (AUTO) 316 K/uL (179-408)
[2021-07-07 08:40] LABS: *BILIRUBIN,URIN NEGATIVE (NEGATIVE); *BLOOD, URINE 2+ (NEGATIVE); *CLARITY,URINE CLEAR (CLEAR); *COLOR,URINE YELLOW (YELLOW); *KETONES,URINE NEGATIVE (NEGATIVE); *UROBILINOGEN,URINE 0.2 E.U./dl (NORMAL); LEUKOCYTE ESTERASE ,URINE NEGATIVE (NEGATIVE); NITRITE, URINE NEGATIVE (NEGATIVE); UGLUCOSE NEGATIVE (NEGATIVE)
[2021-07-07 08:44] LABS: CREATININE 0.7 mg/dL (0.6-1.3); POTASSIUM 4.2 mmol/L (3.5-5.1)
[2021-07-07 08:49] LABS: BILIRUBIN,TOTAL 0.6 mg/dL (0.2-1.0); TOTAL PROTEIN, SERUM 8.3 g/dL (6.4-8.2)
[2021-07-07] MEDS ORDERED: BUPIVACAINE/EPI PF 0.25% 30 ML VIAL ONE ×2 (08:53→10:17)
[2021-07-07] MEDS ORDERED: FENTANYL CITRATE 100 MCG/2 ML AMPUL ONE ×3 (09:17→11:26)
[2021-07-07] MEDS ORDERED: DEXAMETHASONE SOD PHOSPHATE 4 MG INJ ONE ×2 (09:59→10:03)
[2021-07-07] MEDS ORDERED: DEXAMETHASONE SOD PHOSPHATE 10 MG INJ ONE ×2 (09:59→10:02)
[2021-07-07] MEDS ORDERED: HYDROMORPHONE 1 MG/1 ML DISP.SYRIN ONE (12:44)
[2021-07-07 12:49] LABS: BACTERIA,URINE FEW /HPF (NONE SEEN); SQUAMOUS EPITHELIAL CELL,UR FEW /HPF (NONE SEEN); WBC,URINE 0-3 /HPF (0-3)
[2021-07-07 12:50] LABS: MUCUS,URINE FEW /LPF (0-FEW)
--- NOTE | 2021-07-07 14:00 | NUR ---
Admitted PT from [facility] dept accompany by nIga recovery engineer nurse, was transferred on the bed PT S/P Right cyst buttocks excision, Cortisone inj of R sacroiliac joint PT is AAOX4 able to ambulate to BR with assist voiding well IV at Left wrist # 22 intact currently denies pain HOB elevated be in low position call light and all need it items at reach will continue to [id number] closely.
[2021-07-07] MEDS ORDERED: OXYC10TA49 PO (14:47)
[2021-07-07] MEDS ORDERED: MAGNESIUM HYDROXIDE 30 ML LIQUID UDC PO PRN (15:00)
[2021-07-07] MEDS ORDERED: CARISOPRODOL 350 MG TABLET PO PRN (15:00)
[2021-07-07] MEDS ORDERED: BISACODYL 10 MG SUPP.RECT RC PRN (15:00)
[2021-07-07] MEDS ORDERED: OXYCODONE/APAP 5-325 MG TABLET PO PRN (15:00)
[2021-07-07] MEDS ORDERED: TEMAZEPAM 15 MG CAPSULE PO PRN (15:00)
[2021-07-07] MEDS ORDERED: OXYCODONE HCL 5 MG TABLET PO PRN (15:00)
[2021-07-07] MEDS ORDERED: RAMI5CAP66 PO (15:19)
[2021-07-07 16:00] VITALS: BP 119/75
[2021-07-07] MEDS ORDERED: HYDROMORPHONE 1 MG/1 ML DISP.SYRIN IM PRN (16:00)
[2021-07-07] MEDS ORDERED: ONDANSETRON 4 MG/2 ML VIAL IV PRN ×2 (16:00→16:30)
[2021-07-07] MEDS ORDERED: HYDROCODONE/APAP 10-325 MG TABLET PO PRN (16:00)
[2021-07-07] MEDS ORDERED: Z GUARD REMEDY PASTE 57 GM TUBE TOP PRN (16:30)
[2021-07-07] MEDS ORDERED: ACETAMINOPHEN 325 MG TABLET PO PRN (16:30)
[2021-07-07] MEDS ORDERED: LISINOPRIL 5 MG TABLET PO SCH (17:00)
[2021-07-07] MEDS: HYDROMORPHONE 1 MG/1 ML DISP.SYRIN IV PRN ×4 (17:02→23:34)
[2021-07-07] MEDS: AMLODIPINE 5 MG TABLET PO SCH (17:03)
[2021-07-07] MEDS: POTASSIUM CHLORIDE 20 MEQ in IV D5 1/2 NS 1000 ML 1,000 ML IV PRN (17:09)
[2021-07-07] MEDS: RAMIPRIL 5 MG CAPSULE PO SCH (17:52)
--- NOTE | 2021-07-07 19:30 | NUR ---
AAO x4, able to make needs known. at bedside. On RA, no SOB. States pain to right buttocks and leg are better than when she was admitted but still severe. States she is now able to walk better. IV to left wrist, intact and patent. infusing D51/2 ns with 20 KCL. Tolerates well. Needs attended, call light within reach.
[2021-07-07 20:20] VITALS: BP 138/78
[2021-07-07] MEDS ORDERED: DOCUSATE SODIUM 100 MG CAPSULE PO SCH (21:00)
[2021-07-08] MEDS: HYDROMORPHONE 1 MG/1 ML DISP.SYRIN IV PRN ×3 (04:20→11:32)
[2021-07-08 04:30] VITALS: BP 131/88
--- NOTE | 2021-07-08 06:27 | NUR ---
Slept intermittent, AAO x4. C/o pain to right buttocks and leg 8/10, Dilaudid 1mg IVP effective. Dressing in place, clean and intact to right buttock, no drainage noted. Able to ambulate to bathroom with SBA. Slept intermittently, Temazepam provided for inability to sleep with some help. Call light within reach.
[2021-07-08 06:32] LABS: HEMATOCRIT 35.2 % (31.2-41.9); MEAN CORPUSCULAR HEMOGLOBIN 33.4 uug (24.7-32.8); MEAN CORPUSCULAR VOLUME 98.3 fL (75.5-95.3); PLATELET COUNT (AUTO) 244 K/uL (179-408)
[2021-07-08] MEDS ORDERED: PANTOPRAZOLE SODIUM 40 MG TABLET.DR PO SCH (07:00)
[2021-07-08 07:26] LABS: BILIRUBIN,TOTAL 0.5 mg/dL (0.2-1.0); CREATININE 0.6 mg/dL (0.6-1.3); MAGNESIUM 1.9 mg/dL (1.8-2.4); PHOSPHOROUS 3.6 mg/dL (2.5-4.9); POTASSIUM 4.2 mmol/L (3.5-5.1); TOTAL PROTEIN, SERUM 6.8 g/dL (6.4-8.2)
--- NOTE | 2021-07-08 08:00 | NUR ---
CONTINUE WITH PAIN MANAGEMENT
[2021-07-08] MEDS: AMLODIPINE 5 MG TABLET PO SCH (08:09)
[2021-07-08] MEDS: RAMIPRIL 5 MG CAPSULE PO SCH (08:09)
[2021-07-08] MEDS: POTASSIUM CHLORIDE 20 MEQ in IV D5 1/2 NS 1000 ML 1,000 ML IV PRN (08:10)
[2021-07-08] MEDS ORDERED: SENNOSIDES 1 TABLET PO SCH (09:00)
[2021-07-08 11:47] VITALS: BP 111/64
--- NOTE | 2021-07-08 12:30 | NUR ---
DRESSINF CHANGED BY DR RODRÍGUEZ, PATIENT REFUSED PICTIRE TAKING
[2021-07-08] MEDS ORDERED: DEXAMETHASONE SOD PHOSPHATE 4 MG INJ IV ONE (13:39)
[2021-07-08] MEDS ORDERED: ONDANSETRON 4 MG/2 ML VIAL IV ONE (13:39)
[2021-07-08] MEDS ORDERED: PROPOFOL 200 MG/20 ML BOTTLE IV ONE (13:39)
[2021-07-08] MEDS ORDERED: SUCCINYLCHOLINE CHLORIDE 200 MG/10 ML VIAL IV ONE (13:39)
[2021-07-08] MEDS ORDERED: CEFAZOLIN 1 G VIAL IM ONE (13:39)
[2021-07-08] MEDS ORDERED: SEVOFLURANE 250 ML BOTTLE IH ONE (13:39)
[2021-07-08] MEDS ORDERED: LIDOCAINE-MPF 2% 5 ML VIAL IJ ONE (13:39)
--- NOTE | 2021-07-08 13:58 | NUR ---
discharged home stable accompanied by dr ace with medication instruction.
== END 2021-07-08 13:40 | disposition home or self-care (01) | DRG 517 ==
LOC: DS 07:53 → MEDSURG3 13:24
PROVIDERS: ADMIT Orthopaedic Surgery Sports Medicine; ATTEND Hospitalist
PROC: 0JBC3ZZ Excision of Pelvic Region Subcutaneous Tissue and Fascia, Percutaneous Approach (ICD-10-PCS; principal; 2021-07-07)
PROC: 0QH134Z Insertion of Internal Fixation Device into Sacrum, Percutaneous Approach (ICD-10-PCS; principal; 2021-07-07)
PROC: 3E0U33Z Introduction of Anti-inflammatory into Joints, Percutaneous Approach (ICD-10-PCS; principal; 2021-07-07)
DX: M53.2X8 Spinal instabilities, sacral and sacrococcygeal region (principal); G89.29 Other chronic pain; I10 Essential (primary) hypertension; Z98.1 Arthrodesis status; M54.9 Dorsalgia, unspecified; M53.3 Sacrococcygeal disorders, not elsewhere classified; L72.9 Follicular cyst of the skin and subcutaneous tissue, unspecified
CPT/HCPCS: 36415; 71045; 72220; 83735; 84100; 85025; 85730; 93005; 97161; A4217; A4649; A4663; C1713; G0378; J0330; J0690; J1100; J1170; J2405; J3010; J3480; J3490; J7120

== ENCOUNTER 2022-02-07 08:50 | Outpatient (CLI) | payer MEDICARE, BC ==
[~2022-02-07 08:50] MED LIST changes: -CARI350T27 PO; -LISI-782 PO; -NITR100C11 PO; +OXYC10TA49 PO; -OXYC5TAB3 PO; +RAMI5CAP66 PO
== END 2022-02-07 23:59 | disposition home or self-care (01) ==
LOC: LAB 08:50
PROVIDERS: ATTEND Orthopaedic Surgery Sports Medicine
DX: Z01.812 Encounter for preprocedural laboratory examination (principal); Z20.822 Contact with and (suspected) exposure to COVID-19

== ENCOUNTER 2022-02-07 09:41 | Outpatient (CLI) | payer MEDICARE, BC ==
[2022-02-07 10:07] LABS: HEMATOCRIT 41.4 % (31.2-41.9); MEAN CORPUSCULAR HEMOGLOBIN 34.9 uug (24.7-32.8); MEAN CORPUSCULAR VOLUME 100.3 fL (75.5-95.3); PLATELET COUNT (AUTO) 331 K/uL (179-408)
[2022-02-07 10:12] LABS: *BILIRUBIN,URIN NEGATIVE (NEGATIVE); *CLARITY,URINE CLEAR (CLEAR); *COLOR,URINE YELLOW (YELLOW); *KETONES,URINE TRACE (NEGATIVE); CREATININE 0.6 mg/dL (0.6-1.3); LEUKOCYTE ESTERASE ,URINE NEGATIVE (NEGATIVE); NITRITE, URINE NEGATIVE (NEGATIVE); PH,URINE 6.5 (5.0-8.0); POTASSIUM 4.3 mmol/L (3.5-5.1); UGLUCOSE NEGATIVE (NEGATIVE)
[2022-02-07 10:31] LABS: *BLOOD, URINE TRACE (NEGATIVE)
[2022-02-07 10:33] LABS: BACTERIA,URINE NONE SEEN /HPF (NONE SEEN); MUCUS,URINE FEW /LPF (0-FEW); SQUAMOUS EPITHELIAL CELL,UR FEW /HPF (NONE SEEN); WBC,URINE 0-3 /HPF (0-3)
== END 2022-02-07 23:59 | disposition home or self-care (01) ==
LOC: LAB 09:41
PROVIDERS: ATTEND Orthopaedic Surgery Sports Medicine
DX: Z01.818 Encounter for other preprocedural examination (principal); R06.02 Shortness of breath; J18.9 Pneumonia, unspecified organism; Z47.2 Encounter for removal of internal fixation device
CPT/HCPCS: 36415; 71046; 85025; 85610; 85730

== ENCOUNTER 2022-02-08 06:04 | Inpatient (IN) | payer MEDICARE, BC ==
[~2022-02-08] VITALS: Ht 170.2 cm; Wt 62.6 kg
[2022-02-08] MEDS ORDERED: LIDOCAINE 1%-EPI 1:100,000 20 ML VIAL ONE (06:24)
[2022-02-08] MEDS ORDERED: BUPIVACAINE PF 0.5% 30 ML VIAL ONE (06:25)
[2022-02-08] MEDS ORDERED: BUPIVACAINE 0.25% 30 ML VIAL ONE ×2 (06:25→07:56)
[2022-02-08] MEDS ORDERED: BUPIVACAINE/EPI PF 0.5% 10 ML VIAL ONE (06:26)
[2022-02-08] MEDS ORDERED: LIDOCAINE HCL 1% 20 ML VIAL ONE (06:51)
[2022-02-08] MEDS ORDERED: FENTANYL CITRATE 100 MCG/2 ML AMPUL ONE (06:57)
[2022-02-08] MEDS ORDERED: MIDAZOLAM HCL 2 MG/2 ML VIAL ONE (06:57)
[2022-02-08] MEDS ORDERED: VANCOMYCIN 1000 MG VIAL ONE (07:33)
[2022-02-08] MEDS ORDERED: KETOROLAC TROMETHAMINE 30 MG INJ IM PRN (08:15)
[2022-02-08] MEDS ORDERED: NALOXONE HCL 0.4 MG/ML AMPUL IV PRN (08:15)
[2022-02-08] MEDS ORDERED: ONDANSETRON 4 MG/2 ML VIAL IV PRN ×2 (08:15→13:30)
[2022-02-08] MEDS ORDERED: HYDROMORPHONE 1 MG/1 ML DISP.SYRIN IV PRN ×2 (08:15)
[2022-02-08] MEDS ORDERED: MEPERIDINE 25 MG/1 ML DISP.SYRIN IV PRN (08:15)
[2022-02-08] MEDS ORDERED: HYDROMORPHONE 1 MG/1 ML DISP.SYRIN ONE ×2 (09:29→10:07)
--- NOTE | 2022-02-08 11:30 | NUR ---
received from recovery room per bed, awake alert and oriented, on room air, no shortness of breath noted, with IVF on right hand-no swelling/redness noted on site, right iliac with mepilex and right middle finger with dsg and with acewrap to hand and arm, elevated on pillow, able to move fingers, routine admission care and initial assessments done, safety measures initiated
[2022-02-08] MEDS: HYDROMORPHONE 1 MG/1 ML DISP.SYRIN IV PRN ×4 (13:43→22:22)
[2022-02-08] MEDS: IV D5W-0.45% NS +20 KCL 1,000 ML IV PRN (13:44)
[2022-02-08 16:04] VITALS: BP 124/67
[2022-02-08] MEDS ORDERED: BISACODYL 10 MG SUPP.RECT RC PRN (16:30)
[2022-02-08] MEDS ORDERED: CARISOPRODOL 350 MG TABLET PO PRN (16:30)
[2022-02-08] MEDS ORDERED: TEMAZEPAM 15 MG CAPSULE PO PRN (16:30)
[2022-02-08] MEDS ORDERED: MAGNESIUM HYDROXIDE 30 ML LIQUID UDC PO PRN (16:30)
[2022-02-08] MEDS: RAMIPRIL 5 MG CAPSULE PO SCH (17:00)
[2022-02-08] MEDS: AMLODIPINE 5 MG TABLET PO SCH (17:00)
--- NOTE | 2022-02-08 18:42 | NUR ---
no distress noted, all needs attended and met, safety measures in plce, tolerated clear liquids at lunch, requested soft diet for dinner which was served, tolerated, call light within reach, no bleeding noted on post op sites
--- NOTE | 2022-02-08 19:15 | NUR ---
RECEIVED PATIENT IN BED. AAOX4. PATIENT DENIES SOB, CHEST PAIN OR DIZZINESS AT THIS TIME. ABLE TO MAKE NEEDS KNOWN. IV ACCESS PATENT AND INTACT RUNNING D5 1/2 KCL 20 MEQ AT 75CC/HR. SURGICAL DRESSING AT RIGHT MIDDLE FINGER INTACT, SUPPORTED BY HAND BANDAGE. SURGICAL INCISION AT RIGHT ILIAC, INTACT. NO BLEEDING NOTED. PATIENT ABLE TO GO TO BATHROOM WITH MINIMAL ASSISTANCE. PATIENT DO REPORTS PAIN OF 9/10, PRN DILAUDID GIVEN NEEDED. SAFETY PRECAUTIONS IN PLACE. CALL LIGHT WITHIN REACH.
[2022-02-08 20:00] VITALS: BP 136/77
[2022-02-08] MEDS: DOCUSATE SODIUM 100 MG CAPSULE PO SCH (20:07)
[2022-02-08] MEDS: TEMAZEPAM 15 MG CAPSULE PO PRN (23:18)
[2022-02-09] MEDS: HYDROMORPHONE 1 MG/1 ML DISP.SYRIN IV PRN ×8 (02:03→20:57)
[2022-02-09 04:00] VITALS: BP 147/82
[2022-02-09] MEDS: IV D5W-0.45% NS +20 KCL 1,000 ML IV PRN (04:45)
--- NOTE | 2022-02-09 04:52 | NUR ---
PATIENT SLEPT INTERMITTENTLY THROUGH THE NIGHT WITH FREQUENT COMPLAINTS OF PAIN. ALL INTERVENTIONS DUE TO REDUCE PAIN DONE. ICE PACK AND WARM BLANKETS WERE GIVEN. PRN DILAUDID GIVEN AND TOLERATED WELL. SURGICAL DRESSINGS INTACT. SAFETY PRECAUTIONS MAINTAINED. CALL LIGHT WITHIN REACH.
[2022-02-09] MEDS: SENNOSIDES 1 TABLET PO SCH (08:38)
[2022-02-09 08:40] VITALS: BP 142/70
[2022-02-09] MEDS: AMLODIPINE 5 MG TABLET PO SCH ×2 (08:41→17:17)
[2022-02-09] MEDS: RAMIPRIL 5 MG CAPSULE PO SCH ×2 (08:42→17:17)
--- NOTE | 2022-02-09 09:00 | NUR ---
Pt is a/o x 4, complaining of pain in the right hand 10/10, administered prn medication. Comfort measures provided,call light within reach. will continue to monitor.
--- NOTE | 2022-02-09 12:29 | NUR ---
Transferring care to [facility]. Report given.
[2022-02-09 12:31] VITALS: BP 138/66
[2022-02-09 15:32] VITALS: BP 127/59
--- NOTE | 2022-02-09 18:40 | NUR ---
PT AOX4. PT IS SELF CARE. PT ASKED FOR DILAUDID PRN Q2HR. NO DISTRESS NOTED. NO SOB. POSSIBLE D/C MILLER
[2022-02-09 20:00] VITALS: BP 136/75
[2022-02-09] MEDS: DOCUSATE SODIUM 100 MG CAPSULE PO SCH (20:57)
[2022-02-09] MEDS: TEMAZEPAM 15 MG CAPSULE PO PRN (22:13)
[2022-02-10] MEDS: HYDROMORPHONE 1 MG/1 ML DISP.SYRIN IV PRN ×5 (01:59→11:09)
[2022-02-10 04:00] VITALS: BP 135/70
--- NOTE | 2022-02-10 04:34 | NUR ---
PT JUST SLEPT FOR 4HRS FROM [id number], PT WOKE UP ASKING FOR PAIN MED. GAVE PRN DILAUDID. WILL REASSESS IN 1HR
[2022-02-10] MEDS: SENNOSIDES 1 TABLET PO SCH (08:39)
[2022-02-10] MEDS: AMLODIPINE 5 MG TABLET PO SCH (08:39)
[2022-02-10] MEDS: RAMIPRIL 5 MG CAPSULE PO SCH (08:40)
[2022-02-10 11:52] VITALS: BP 94/69
--- NOTE | 2022-02-10 12:01 | NUR ---
Pt is a/o x 4, no complaint of pain at this time. Pt is discharged home, picked up by . Al discharge education and material provided for pt. All personal belongings at hand. Pt was wheeled down to hospital entrance where transportation awaits. No medications requested by pt at time of discharge. IV and ID band removed.
[2022-02-10] MEDS ORDERED: PROPOFOL 200 MG/20 ML BOTTLE IV ONE (12:10)
[2022-02-10] MEDS ORDERED: METOCLOPRAMIDE HCL 10 MG/2 ML VIAL IV ONE (12:10)
[2022-02-10] MEDS ORDERED: ONDANSETRON 4 MG/2 ML VIAL IV ONE (12:10)
[2022-02-10] MEDS ORDERED: EPHEDRINE SULFATE 50 MG/ML AMPUL IM ONE (12:10)
[2022-02-10] MEDS ORDERED: KETOROLAC TROMETHAMINE 30 MG INJ IM ONE (12:10)
[2022-02-10] MEDS ORDERED: SEVOFLURANE 250 ML BOTTLE IH ONE (12:10)
[2022-02-10] MEDS ORDERED: DEXAMETHASONE SOD PHOSPHATE 4 MG INJ IV ONE (12:10)
== END 2022-02-10 12:11 | disposition home or self-care (01) | DRG 496 ==
LOC: DS 06:04 → MEDSURG3 11:34
PROVIDERS: ADMIT Orthopaedic Surgery Sports Medicine; ATTEND Internal Medicine
PROC: 0RNW0ZZ Release Right Finger Phalangeal Joint, Open Approach (ICD-10-PCS; principal; 2022-02-08)
PROC: 0PPT04Z Removal of Internal Fixation Device from Right Finger Phalanx, Open Approach (ICD-10-PCS; principal; 2022-02-08)
PROC: 0SP704Z Removal of Internal Fixation Device from Right Sacroiliac Joint, Open Approach (ICD-10-PCS; principal; 2022-02-08)
DX: T84.84XA Pain due to internal orthopedic prosthetic devices, implants and grafts, initial encounter (principal); D68.59 Other primary thrombophilia; M24.641 Ankylosis, right hand; Z98.1 Arthrodesis status; I10 Essential (primary) hypertension; R94.31 Abnormal electrocardiogram [ECG] [EKG]; M19.90 Unspecified osteoarthritis, unspecified site; M51.9 Unspecified thoracic, thoracolumbar and lumbosacral intervertebral disc disorder; S39.92XD Unspecified injury of lower back, subsequent encounter; V49.9XXD Car occupant (driver) (passenger) injured in unspecified traffic accident, subsequent encounter; Z88.1 Allergy status to other antibiotic agents; Z87.81 Personal history of (healed) traumatic fracture; Z88.0 Allergy status to penicillin; Z88.2 Allergy status to sulfonamides; Z88.8 Allergy status to other drugs, medicaments and biological substances; I44.4 Left anterior fascicular block; Z87.891 Personal history of nicotine dependence; Z98.82 Breast implant status; Z74.09 Other reduced mobility; G89.28 Other chronic postprocedural pain; Y79.8 Miscellaneous orthopedic devices associated with adverse incidents, not elsewhere classified; Y92.89 Other specified places as the place of occurrence of the external cause
CPT/HCPCS: 36415; 71046; 72170; 85025; 85610; 85730; 93005; A4649; A4663; A6209; G0378; J1100; J1170; J1885; J2250; J2405; J2765; J3010; J3370; J3490; J7040

== ENCOUNTER 2022-09-03 15:39 | Inpatient (IN) | payer MEDICARE, BC ==
[~2022-09-03] VITALS: Ht 172.7 cm; Wt 61.2 kg
[~2022-09-03 15:39] MED LIST changes: -CARI350T PO; -HYDR1SYR4 IJ; -OXYC-133 PO; -TEMA15CA PO
[2022-09-03] MEDS ORDERED: SENN-261 PO (17:03)
[2022-09-03] MEDS ORDERED: GABA-532 PO (17:03)
[2022-09-03] MEDS ORDERED: CARI350T PO (17:03)
[2022-09-03] MEDS ORDERED: METO25TA6 PO (17:03)
[2022-09-03] MEDS ORDERED: FERR325T28 PO (17:03)
[2022-09-03] MEDS ORDERED: LACT10SO3 PO (17:03)
[2022-09-03] MEDS ORDERED: FENT1PAT23 TD (17:03)
[2022-09-03] MEDS ORDERED: IPRA0.2S48 NEB (17:03)
[2022-09-03] MEDS ORDERED: RAMI10CA69 PO (17:03)
[2022-09-03] MEDS ORDERED: HYDR2TAB4 PO (17:03)
[2022-09-03] MEDS ORDERED: LACT296L PO (17:03)
[2022-09-03] MEDS ORDERED: LIDO30AD10 TD (17:03)
[2022-09-03] MEDS ORDERED: TIZA4CAP PO (17:03)
[2022-09-03] MEDS ORDERED: [UNRECOGNIZED DRUG - CODE] MC (17:03)
[2022-09-03] MEDS ORDERED: BISA10SU61 RC (17:03)
[2022-09-03] MEDS ORDERED: HYDR-4075 PO (17:03)
[2022-09-03] MEDS ORDERED: DOCU250C14 PO (17:03)
[2022-09-03 17:30] VITALS: BP 140/65
--- NOTE | 2022-09-03 17:57 | NUR ---
Patient admitted from [facility], alert, oriented x4, verbally responsive, no sob, respiration are even nonlabored, skin warm and dry to touch, dr ortega is aware about med recon, dr rob is aware about pain medications orders. patient has eldridge catheter intact, draining yellow color urine, no distress noted at this time.
[2022-09-03] MEDS ORDERED: Medication Not On Formulary EA (Lactulose (Duphalac) 10 GM) PO SCH (18:15)
[2022-09-03] MEDS ORDERED: IPRATROPIUM BROMIDE 0.5 MG/2.5 ML NEBU NEB PRN (18:15)
[2022-09-03] MEDS ORDERED: BISACODYL 10 MG SUPP.RECT RC PRN (18:15)
[2022-09-03] MEDS ORDERED: HYDROMORPHONE HCL 2 MG TABLET PO PRN (18:30)
[2022-09-03] MEDS ORDERED: FENTANYL 25 MCG/HR PATCH EACH TD ONE ×2 (19:00→21:49)
[2022-09-03] MEDS ORDERED: NALOXONE HCL 0.4 MG/ML AMPUL IV PRN (19:00)
--- NOTE | 2022-09-03 19:03 | NUR ---
Spoke to dr rob regarding patient pain medication, orders noted, per dr rob patient is started on dilaudid 10mg every 4 hours as needed, and fentanyl 125mcg every 72 hours. orders noted.
--- NOTE | 2022-09-03 19:09 | NUR ---
endorsed to next shift about patient pain medications accordingly
[2022-09-03 20:51] VITALS: BP 176/85
[2022-09-03] MEDS: SENNOSIDES 1 TABLET PO SCH (21:00)
[2022-09-03] MEDS ORDERED: LISINOPRIL 10 MG TABLET PO SCH (21:00)
[2022-09-03] MEDS: DOCUSATE SODIUM 250 MG CAPSULE PO SCH (21:00)
[2022-09-03] MEDS ORDERED: TEMAZEPAM 15 MG CAPSULE PO PRN ×2 (21:30→21:45)
[2022-09-03] MEDS ORDERED: MORPHINE SULFATE SR 15 MG TABLET.SA PO SCH (22:00)
--- NOTE | 2022-09-03 23:00 | NUR ---
1920-The patient is aox4. Vital signs stable. The patient has a eldridge catheter that is clean, dry, patent, intact, and below the bladder.The patient has no sob. From AM nurse, stated that she input MD Sierra medicine order and that MD ordered to administer per schedule. Call light within reach, two side rails up, bed at lowest position, and bed alarm on, wheels lock. Will continue to monitor throughout the shift. 2129- Patient request for sleeping medication since she is having trouble sleeping. Notified MD Perry) to obtain the order. Will continue to monitor the patient throughout the shift. 2144- Anahi) authorizes the order for a sleeping medication. Waiting for operation specialist pharmacy to verified the order. 0100- The patient has no sob or complains of pain. The patient request for extra warm blankets. Items are given to the patient. Will continue to monitor throughout the shift.
[2022-09-04] MEDS ORDERED: CARISOPRODOL 350 MG TABLET PO SCH
[2022-09-04] MEDS: GABAPENTIN 100 MG CAPSULE PO SCH ×4 (00:38→18:00)
[2022-09-04] MEDS: HYDROMORPHONE HCL 2 MG TABLET PO PRN ×6 (00:39→22:09)
[2022-09-04 04:11] VITALS: BP 148/75
[2022-09-04 07:33] VITALS: BP 129/69
[2022-09-04] MEDS: DOCUSATE SODIUM 250 MG CAPSULE PO SCH ×2 (08:55→20:35)
[2022-09-04] MEDS: FERROUS SULFATE 325 MG TABEC PO SCH (08:55)
[2022-09-04] MEDS: LISINOPRIL 20 MG TABLET PO SCH (08:56)
[2022-09-04] MEDS: CARISOPRODOL 350 MG TABLET PO SCH ×3 (08:56→16:46)
[2022-09-04] MEDS: ENSURE CLEAR 240 ML LIQUID (MIX BERRY) PO SCH ×2 (08:58→16:45)
[2022-09-04 15:01] VITALS: BP 105/51
--- NOTE | 2022-09-04 17:32 | NUR ---
Pt. did therapy walking about 25 steps. Pt is always in pain (lumbar surgery). Dilaudid 10mg given every 4 hours. Pt. tolerated it well. Galeana catheter draining 600cc.
[2022-09-04] MEDS: SENNOSIDES 1 TABLET PO SCH (20:35)
[2022-09-04] MEDS: METOPROLOL TARTRATE 25 MG TABLET PO SCH (20:45)
[2022-09-04 21:06] VITALS: BP 95/58
[2022-09-05] MEDS: GABAPENTIN 100 MG CAPSULE PO SCH ×3 (00:12→12:01)
--- NOTE | 2022-09-05 01:57 | NUR ---
Patient awake,alert,and oriented x4. No acute distress noted. Galeana intact with clear venus urine noted. Medicated as needed for complaint of pain. Will continue to monitor
[2022-09-05] MEDS: HYDROMORPHONE HCL 2 MG TABLET PO PRN ×3 (02:40→11:51)
[2022-09-05 04:02] VITALS: BP 125/70
[2022-09-05 08:00] VITALS: BP 101/49
[2022-09-05] MEDS ORDERED: FENTANYL 25 MCG/HR PATCH EACH TD SCH (09:00)
[2022-09-05] MEDS: FERROUS SULFATE 325 MG TABEC PO SCH (09:16)
[2022-09-05] MEDS: DOCUSATE SODIUM 250 MG CAPSULE PO SCH ×2 (09:17→21:34)
[2022-09-05] MEDS: METOPROLOL TARTRATE 25 MG TABLET PO SCH ×2 (09:17→21:34)
[2022-09-05] MEDS: FENTANYL 100MCG/HR PATCH TD SCH (09:26)
[2022-09-05] MEDS: CARISOPRODOL 350 MG TABLET PO SCH ×3 (09:35→17:21)
[2022-09-05] MEDS: LISINOPRIL 20 MG TABLET PO SCH (09:35)
[2022-09-05] MEDS: ENSURE CLEAR 240 ML LIQUID (MIX BERRY) PO SCH ×2 (09:36→17:27)
[2022-09-05 16:00] VITALS: BP 109/48
[2022-09-05] MEDS ORDERED: GABAPENTIN 300 MG CAPSULE PO SCH (17:00)
[2022-09-05] MEDS: GABAPENTIN 400 MG CAPSULE PO SCH (17:21)
--- NOTE | 2022-09-05 18:29 | NUR ---
Patient alert and oriented, able to communicate her needs and follow directions. Patient on R/A, no respiratory distress noted. Patient requires extensive assist with ADLS. Currently under rehab for PT/OT skilled services as ordered, patient participated short walk distance with therapist but was able to actively participate in therapy. Patient has a back surgery, treatment done/dressing changed, surgical line appears to be healing well, no drainage/bleeding noted. Patient was medicated routinely as scheduled and PRN for pain based on pain level needs. Patient requires of one person physical assist with ADLS in general, personal care/hygiene. Care provided at routine intervals and as needed. Routine rounds and frequent visual checks done. Needs anticipated and met during shift.
[2022-09-05 20:00] VITALS: BP 112/56
[2022-09-05] MEDS: CYCLOBENZAPRINE HCL 10 MG TABLET PO SCH (21:34)
[2022-09-05] MEDS: SENNOSIDES 1 TABLET PO SCH (21:34)
[2022-09-06] MEDS: HYDROMORPHONE HCL 2 MG TABLET PO PRN ×4 (04:06→16:29)
[2022-09-06 06:50] VITALS: BP 141/44
[2022-09-06 07:21] LABS: HEMATOCRIT 32.9 % (31.2-41.9); MEAN CORPUSCULAR HEMOGLOBIN 30.1 uug (24.7-32.8); MEAN CORPUSCULAR VOLUME 91.3 fL (75.5-95.3); PLATELET COUNT (AUTO) 485 K/uL (179-408)
[2022-09-06 07:44] LABS: BILIRUBIN,TOTAL 0.5 mg/dL (0.2-1.0); CREATININE 0.5 mg/dL (0.6-1.3); PHOSPHOROUS 3.4 mg/dL (2.5-4.9); TOTAL PROTEIN, SERUM 6.5 g/dL (6.4-8.2)
[2022-09-06 07:47] VITALS: BP 116/56
[2022-09-06] MEDS: DOCUSATE SODIUM 250 MG CAPSULE PO SCH ×2 (08:05→21:00)
[2022-09-06] MEDS: FERROUS SULFATE 325 MG TABEC PO SCH (08:05)
[2022-09-06] MEDS: GABAPENTIN 400 MG CAPSULE PO SCH ×3 (08:06→16:17)
[2022-09-06] MEDS: LISINOPRIL 20 MG TABLET PO SCH (08:06)
[2022-09-06] MEDS: METOPROLOL TARTRATE 25 MG TABLET PO SCH ×2 (08:06→21:00)
[2022-09-06] MEDS: CARISOPRODOL 350 MG TABLET PO SCH ×3 (08:06→16:17)
[2022-09-06] MEDS: ENSURE CLEAR 240 ML LIQUID (MIX BERRY) PO SCH ×2 (09:16→16:58)
[2022-09-06] MEDS: ENOXAPARIN SODIUM 40 MG/0.4 ML DISP.SYRIN SQ SCH (10:00)
--- NOTE | 2022-09-06 10:00 | NUR ---
Pt refused PT this AM due to pain 05/09.
--- NOTE | 2022-09-06 11:26 | NUR ---
Pt c/o 03/09, down from 05/09, pain after Dilaudid given at 0813 and Fentanyl patches totalling 125mcg on since yesterday at 0925. Notified Dr. Sierra. Will follow up.
--- NOTE | 2022-09-06 12:14 | NUR ---
INDIVIDUALIZED PLAN OF CARE
--- NOTE | 2022-09-06 12:55 | NUR ---
Spoke with Dr. Gomez re pt's pain. Dr. Sierra said that Dr. Gomez will be taking over her pain management as of today. Dr. Gomez will come visit the pt today. He says that we can give the pt HOT AND COLD PACKS as pt requests. Hot pack given at 1220 and pt now reports that it is helping that her pain is now 5/10. Will continue to monitor.
[2022-09-06 15:52] VITALS: BP 117/59
--- NOTE | 2022-09-06 16:06 | NUR ---
Dr. Gomez was here to see the pt at 1530. He wants the surgeon, Dr. Gavin to come see the pt in person to evaluate her. Dr. Gomez said, "She has 10/10 pain, she can't pee, she can't move" and there are no x-rays or cat scans on file. I got Dr. Gavin's number from the pt, , and gave gave him a call. Dr. Gavin requested that Dr. Gomez call him directly. I called Dr. Gomez's office, , and gave Amy Gavin's number. Amy said that she would get it to Dr. Gomez with the message to call him directly.
[2022-09-06] MEDS: SENNOSIDES 1 TABLET PO SCH (21:00)
[2022-09-06 21:30] VITALS: BP 116/68
[2022-09-06] MEDS: CYCLOBENZAPRINE HCL 10 MG TABLET PO SCH (21:46)
--- NOTE | 2022-09-06 23:00 | NUR ---
1920-The patient is aox4. Vital signs stable. The patient has a eldridge catheter that is clean, dry, patent, intact, and below the bladder.The patient has no sob. Call light within reach, two side rails up, bed at lowest position, and bed alarm on, wheels lock. Will continue to monitor throughout the shift. 2200- Patient request for a heat pack. Item is given to the patient. Patient states that, "Heat packs are allowing her to get some sleep." The patient has no complains of pain or sob. Will continue to monitor the patient throughout the shift. The patient request for sleeping medicine. sent a message to the MD. Waiting for a response. 2300- The patient is resting comfortably. Will endorse to AM nurse to follow up with patient's request of sleeping medicine for the night since there was no response during the night. Will continue to monitor throughout the shift. 0200- The patient has no sob or complains of pain. The patient request for extra water. Items are given to the patient. Will continue to monitor throughout the shift.
[2022-09-07] MEDS: HYDROMORPHONE HCL 2 MG TABLET PO PRN ×4 (00:43→16:05)
[2022-09-07 04:20] VITALS: BP 116/55
[2022-09-07 07:35] VITALS: BP 141/64
[2022-09-07] MEDS: CARISOPRODOL 350 MG TABLET PO SCH ×3 (08:54→16:56)
[2022-09-07] MEDS: DOCUSATE SODIUM 250 MG CAPSULE PO SCH (08:55)
[2022-09-07] MEDS: FERROUS SULFATE 325 MG TABEC PO SCH (08:55)
[2022-09-07] MEDS: METOPROLOL TARTRATE 25 MG TABLET PO SCH ×2 (08:55→21:00)
[2022-09-07] MEDS: LISINOPRIL 20 MG TABLET PO SCH (08:55)
[2022-09-07] MEDS: GABAPENTIN 400 MG CAPSULE PO SCH ×3 (08:56→16:56)
[2022-09-07] MEDS: ENOXAPARIN SODIUM 40 MG/0.4 ML DISP.SYRIN SQ SCH (08:58)
[2022-09-07] MEDS: ENSURE CLEAR 240 ML LIQUID (MIX BERRY) PO SCH ×2 (09:05→17:30)
--- NOTE | 2022-09-07 13:21 | NUR ---
INTERDISCIPLINARY TEAM CONFERENCE
[2022-09-07] MEDS ORDERED: CLONAZEPAM 0.5 MG TABLET PO PRN (13:45)
[2022-09-07 15:58] VITALS: BP 110/54
--- NOTE | 2022-09-07 18:28 | NUR ---
0730-Patient in bed, awake, A/Ox4, able to communicate her needs and follow directions. No physical or respiratory distress noted, on R/A and saturating well. Encouraged patient to use call light for help every time needed with good understanding. 0900-Scheduled medications administered as ordered with no ASE noted. Patient medicated PRN for pain based on pain level needs and as ordered by MD. Galeana cath patient with adequate output. Urine noted dark orangish color. Patient denies any bladder discomfort, takes oral fluids well. Obtained orders for a UA from Dr. Sierra, noted and carried out.
--- NOTE | 2022-09-07 18:57 | NUR ---
PER DR. RODRIGUEZ "MAKE SURE OXYGEN SATURATION LEVEL IS BEEN CHECK QS RELIGIOUSLY" ENDORSED TO INCOMING RELIEVING RN FOR PROPER FOLLOW UP.
[2022-09-07 20:00] VITALS: BP 95/52
[2022-09-08] MEDS: SENNOSIDES 1 TABLET PO SCH ×2 (01:02→20:51)
[2022-09-08] MEDS: DOCUSATE SODIUM 250 MG CAPSULE PO SCH ×3 (01:02→20:51)
[2022-09-08] MEDS: diphenhydrAMINE 50 MG CAPSULE PO SCH ×2 (01:02→21:02)
[2022-09-08] MEDS: CYCLOBENZAPRINE HCL 10 MG TABLET PO SCH ×2 (01:02→21:02)
[2022-09-08 01:03] VITALS: BP 116/55
--- NOTE | 2022-09-08 01:11 | NUR ---
Patient sleeping until 0110 am. Patient requested to wait and take medications later at bedtime. Too sleepy at that time to take them. B/p upon recieving patient was 95/52. B/p now 116/55, pulse 92. Patient awke at present , complaining of pain and requestintg pain medications. Patient instructed to take her Benadryl and Flexeril per Dr. Sierra. Will continue to monitor.
[2022-09-08] MEDS: HYDROMORPHONE HCL 2 MG TABLET PO PRN ×2 (02:46→06:52)
[2022-09-08 04:00] VITALS: BP 103/59
[2022-09-08 07:44] VITALS: BP 123/60
[2022-09-08] MEDS ORDERED: FENTANYL 25 MCG/HR PATCH EACH TD SCH (09:00)
[2022-09-08] MEDS: ENOXAPARIN SODIUM 40 MG/0.4 ML DISP.SYRIN SQ SCH (09:21)
[2022-09-08] MEDS: CARISOPRODOL 350 MG TABLET PO SCH ×3 (09:21→16:40)
[2022-09-08] MEDS: CLONAZEPAM 0.5 MG TABLET PO SCH ×2 (09:21→16:40)
[2022-09-08] MEDS: METOPROLOL TARTRATE 25 MG TABLET PO SCH ×2 (09:21→21:02)
[2022-09-08] MEDS: FERROUS SULFATE 325 MG TABEC PO SCH (09:22)
[2022-09-08] MEDS: LISINOPRIL 20 MG TABLET PO SCH (09:22)
[2022-09-08] MEDS: GABAPENTIN 400 MG CAPSULE PO SCH ×3 (09:28→16:40)
[2022-09-08] MEDS: FENTANYL 100MCG/HR PATCH TD SCH (09:35)
[2022-09-08] MEDS: ENSURE CLEAR 240 ML LIQUID (MIX BERRY) PO SCH ×2 (09:40→17:12)
[2022-09-08 12:19] LABS: *BILIRUBIN,URIN NEGATIVE (NEGATIVE); *BLOOD, URINE NEGATIVE (NEGATIVE); *CLARITY,URINE CLEAR (CLEAR); *COLOR,URINE YELLOW (YELLOW); *KETONES,URINE NEGATIVE (NEGATIVE); LEUKOCYTE ESTERASE ,URINE 1+ (NEGATIVE); NITRITE, URINE NEGATIVE (NEGATIVE); PH,URINE 6.5 (5.0-8.0); UGLUCOSE NEGATIVE (NEGATIVE)
[2022-09-08 15:08] VITALS: BP 120/55
[2022-09-08 17:53] LABS: BACTERIA,URINE NONE SEEN /HPF (NONE SEEN); RBC,URINE NONE SEEN /HPF (0-3); SQUAMOUS EPITHELIAL CELL,UR FEW /HPF (NONE SEEN); WBC,URINE NONE SEEN /HPF (0-3)
--- NOTE | 2022-09-08 18:45 | NUR ---
Patient alert and oriented, able make herself known and follow directions. S/P back surgery, surgical site intact and healing well; dressing to site changed, patient tolerated well with no c/o pain. Patient OOB with rehab/PT/OT, able to actively participate in therapy and tolerated it well. Patient under pain mngt routine and PRN. Patient did not ask for any PRN pain medication today, upon assessing patient for pain during and through out the shift patient verbalizes to be comfortable and not experiencing pain. Assisted patient with ADLS and as needed. Patient was informed about the possibility of removing her eldridge catheter. Patient stated, not to feel yet ready to remove eldridge cather as getting oob to use the restroom might exacerbate or trigger her pain. Per Dr. Nelson to hold on removing catheter for now. Wishes and choices respected. Patient denies any bladder discomfort, eldridge is draining to gravity, yellow urine output. Patient able to consume oral fluids as desired. All needs anticipated and met. Endorsed appropriately to relieving NOC RN. VSS and as follows: 0800-123/60, p77, oxygen 95% 0925am-BP123/53, p91, oxygen 92% 1100am-130/60, p81, oxygen 98% 1839pm-113/67, p85, oxygen 98%, r16 (These last set of VS were relayed to Dr. Sierra as per his request to update him before I left for the shift.)
[2022-09-08 20:00] VITALS: BP 113/54
[2022-09-08] MEDS: IV NS 1000 ML 1,000 ML IV PRN (21:32)
[2022-09-09] MEDS: HYDROMORPHONE HCL 2 MG TABLET PO PRN ×4 (00:17→21:42)
[2022-09-09 04:00] VITALS: BP 109/43
[2022-09-09 07:25] VITALS: BP 138/54
[2022-09-09] MEDS: ENOXAPARIN SODIUM 40 MG/0.4 ML DISP.SYRIN SQ SCH (08:07)
[2022-09-09] MEDS: CLONAZEPAM 0.5 MG TABLET PO SCH ×2 (08:09→17:17)
[2022-09-09] MEDS: DOCUSATE SODIUM 250 MG CAPSULE PO SCH ×2 (08:09→20:47)
[2022-09-09] MEDS: CARISOPRODOL 350 MG TABLET PO SCH ×3 (08:09→17:17)
[2022-09-09] MEDS: FERROUS SULFATE 325 MG TABEC PO SCH (08:09)
[2022-09-09] MEDS: METOPROLOL TARTRATE 25 MG TABLET PO SCH ×2 (08:09→20:48)
[2022-09-09] MEDS: LISINOPRIL 20 MG TABLET PO SCH (08:09)
[2022-09-09] MEDS: ENSURE CLEAR 240 ML LIQUID (MIX BERRY) PO SCH ×2 (08:10→17:17)
[2022-09-09] MEDS: GABAPENTIN 400 MG CAPSULE PO SCH ×3 (08:12→17:18)
--- NOTE | 2022-09-09 08:30 | NUR ---
Pt states she is in " or 14/05 pain. It's immeasurable". Dilaudid given as ordered PRN and a hot pack provided. Will reassess. Addendum: 09/09/22 at 1838 by CHIQUI BURGOS RN HOT PACKS seem to assist in pain management. Pain medicine continuing to be tapered by .
[2022-09-09] MEDS: IV NS 1000 ML 1,000 ML IV PRN (11:15)
--- NOTE | 2022-09-09 13:50 | NUR ---
Notified hospitalist, Dr. Arriaza, of pt's lab results from today that appear to show a UTI. Asked if he would like to start antibiotics. He said, "I will take a look."
[2022-09-09 15:57] VITALS: BP 143/56
[2022-09-09 20:00] VITALS: BP 122/62
[2022-09-09] MEDS: diphenhydrAMINE 50 MG CAPSULE PO SCH (20:47)
[2022-09-09] MEDS: SENNOSIDES 1 TABLET PO SCH (20:47)
[2022-09-09] MEDS: CYCLOBENZAPRINE HCL 10 MG TABLET PO SCH (20:47)
[2022-09-10] MEDS: IV NS 1000 ML 1,000 ML IV PRN ×2 (01:26→17:39)
[2022-09-10] MEDS: HYDROMORPHONE HCL 2 MG TABLET PO PRN ×3 (06:10→20:37)
[2022-09-10 07:35] VITALS: BP 148/61
[2022-09-10] MEDS ORDERED: FENTANYL 75 MCG/HR PATCH EACH TD SCH (09:00)
[2022-09-10] MEDS: FERROUS SULFATE 325 MG TABEC PO SCH (09:06)
[2022-09-10] MEDS: ENSURE CLEAR 240 ML LIQUID (MIX BERRY) PO SCH ×2 (09:06→17:32)
[2022-09-10] MEDS: DOCUSATE SODIUM 250 MG CAPSULE PO SCH ×2 (09:06→20:38)
[2022-09-10] MEDS: CLONAZEPAM 0.5 MG TABLET PO SCH ×2 (09:06→17:31)
[2022-09-10] MEDS: CARISOPRODOL 350 MG TABLET PO SCH ×3 (09:07→17:31)
[2022-09-10] MEDS: METOPROLOL TARTRATE 25 MG TABLET PO SCH ×2 (09:07→20:37)
[2022-09-10] MEDS: GABAPENTIN 400 MG CAPSULE PO SCH ×3 (09:07→17:31)
[2022-09-10] MEDS: LISINOPRIL 20 MG TABLET PO SCH (09:07)
[2022-09-10] MEDS: ENOXAPARIN SODIUM 40 MG/0.4 ML DISP.SYRIN SQ SCH (09:09)
[2022-09-10] MEDS: LACTULOSE 20 G/30 ML LIQUID UDC PO PRN (09:09)
[2022-09-10 16:05] VITALS: BP 111/61
[2022-09-10 16:14] VITALS: BP 113/70
[2022-09-10 20:21] VITALS: BP 131/65
[2022-09-10] MEDS: SENNOSIDES 1 TABLET PO SCH (20:37)
[2022-09-10] MEDS: diphenhydrAMINE 50 MG CAPSULE PO SCH (20:37)
[2022-09-10] MEDS: CYCLOBENZAPRINE HCL 10 MG TABLET PO SCH (20:38)
[2022-09-11] MEDS: HYDROMORPHONE HCL 2 MG TABLET PO PRN ×4 (02:49→21:35)
[2022-09-11 04:21] VITALS: BP 151/69
--- NOTE | 2022-09-11 05:49 | NUR ---
Slept intermittently, easy to arouse, in no acute distress. Medicated for pain as ordered. Needs assessed and attended to.
[2022-09-11 07:55] VITALS: BP 161/80
[2022-09-11] MEDS: CARISOPRODOL 350 MG TABLET PO SCH ×3 (09:05→16:33)
[2022-09-11] MEDS: FERROUS SULFATE 325 MG TABEC PO SCH (09:06)
[2022-09-11] MEDS: CLONAZEPAM 0.5 MG TABLET PO SCH ×2 (09:06→16:33)
[2022-09-11] MEDS: LISINOPRIL 20 MG TABLET PO SCH (09:06)
[2022-09-11] MEDS: GABAPENTIN 400 MG CAPSULE PO SCH ×3 (09:06→16:33)
[2022-09-11] MEDS: METOPROLOL TARTRATE 25 MG TABLET PO SCH ×2 (09:06→21:02)
[2022-09-11] MEDS: DOCUSATE SODIUM 250 MG CAPSULE PO SCH ×2 (09:06→21:01)
[2022-09-11] MEDS: FENTANYL 100MCG/HR PATCH TD SCH (09:07)
[2022-09-11] MEDS: LACTULOSE 20 G/30 ML LIQUID UDC PO PRN (09:07)
[2022-09-11] MEDS: ENOXAPARIN SODIUM 40 MG/0.4 ML DISP.SYRIN SQ SCH (09:11)
[2022-09-11] MEDS: IV NS 1000 ML 1,000 ML IV PRN (09:30)
[2022-09-11] MEDS: ENSURE CLEAR 240 ML LIQUID (MIX BERRY) PO SCH ×2 (09:33→16:40)
[2022-09-11 16:00] VITALS: BP 123/71
--- NOTE | 2022-09-11 19:46 | NUR ---
RECEIVED REPORT FROM ALEXANDRO NAVARRO NOC SHIFT. PATIENT IS ALERT & ORIENTED X4, AND SPEAKS [place]. PATIENT PARTICIPATES WITH PHYSICAL AND OCCUPATIONAL THERAPY SCHEDULED. VITAL SIGNS STABLE. PATIENT HAD REPORTED PAIN. RN GAVE PAIN MEDICATION INDICATED. PATIENT EXPRESSED RELIEF OF PAIN. PATIENT VOIDS ADEQUATELY WITH ASSIST TO BATHROOM. RN NOTED NO BOWEL MOVEMENTS, RN GAVE PRN MEDICATIONS TO ASSIST WITH MOVING BOWEL FORWARD. NO ACUTE DISTRESS NOTED. FALL PRECAUTIONS OBSERVED. ALL NEEDS MET AT THIS TIME. ENDORSED CARE TO ALEXANDRO LOYOLA, FOR CONTINUATION OF CARE.
[2022-09-11 20:00] VITALS: BP 134/83
[2022-09-11] MEDS: SENNOSIDES 1 TABLET PO SCH (21:01)
[2022-09-11] MEDS: diphenhydrAMINE 50 MG CAPSULE PO SCH (21:01)
[2022-09-11] MEDS: CYCLOBENZAPRINE HCL 10 MG TABLET PO SCH (21:01)
[2022-09-12] MEDS: IV NS 1000 ML 1,000 ML IV PRN (03:57)
[2022-09-12 04:00] VITALS: BP 131/82
[2022-09-12] MEDS: HYDROMORPHONE HCL 2 MG TABLET PO PRN ×3 (04:25→16:46)
--- NOTE | 2022-09-12 05:42 | NUR ---
Slept intermittently. Complained of 10/10 pain. Administered pain medication as ordered. IV site intact and patent with NS running at 75 ml/hr. Assisted pt to the bathroom, able to walk with walker. All needs attended. Safety precautions observed.
[2022-09-12 07:37] VITALS: BP 128/60
[2022-09-12] MEDS: CLONAZEPAM 0.5 MG TABLET PO SCH ×2 (08:06→16:48)
[2022-09-12] MEDS: CARISOPRODOL 350 MG TABLET PO SCH ×3 (08:06→16:48)
[2022-09-12] MEDS: METOPROLOL TARTRATE 25 MG TABLET PO SCH ×2 (08:06→21:01)
[2022-09-12] MEDS: LISINOPRIL 20 MG TABLET PO SCH (08:07)
[2022-09-12] MEDS: FERROUS SULFATE 325 MG TABEC PO SCH (08:07)
[2022-09-12] MEDS: DOCUSATE SODIUM 250 MG CAPSULE PO SCH ×2 (08:07→21:02)
[2022-09-12] MEDS: GABAPENTIN 400 MG CAPSULE PO SCH ×3 (08:07→16:48)
[2022-09-12] MEDS: ENOXAPARIN SODIUM 40 MG/0.4 ML DISP.SYRIN SQ SCH (08:16)
[2022-09-12] MEDS: ENSURE CLEAR 240 ML LIQUID (MIX BERRY) PO SCH ×2 (08:19→16:54)
[2022-09-12] MEDS ORDERED: KETOROLAC TROMETHAMINE 30 MG INJ IM ONE (09:00)
--- NOTE | 2022-09-12 12:47 | NUR ---
WOUND CARE CONSULT: RECEIVED REQUEST TO SEE PT FOR RAISED AREA AROUND CLOSED INCISION TO BACK. PT REPORTS SOME TENDERNESS TO AREA. NO ERYTHEMA OR DRAINAGE NOTED. DR RODRIGUEZ IN TO EXAMINE PT. PT'S SURGEON WAS CALLED BY . DEFER TO PMD/SURGEON FOR RAISED AREA.
[2022-09-12 13:13] LABS: HEMATOCRIT 30.4 % (31.2-41.9); MEAN CORPUSCULAR HEMOGLOBIN 30.1 uug (24.7-32.8); MEAN CORPUSCULAR VOLUME 89.7 fL (75.5-95.3); PLATELET COUNT (AUTO) 433 K/uL (179-408)
[2022-09-12 13:29] LABS: BILIRUBIN,TOTAL 0.3 mg/dL (0.2-1.0); CREATININE 0.5 mg/dL (0.6-1.3); POTASSIUM 3.4 mmol/L (3.5-5.1); TOTAL PROTEIN, SERUM 5.7 g/dL (6.4-8.2)
[2022-09-12 16:00] VITALS: BP 140/80
--- NOTE | 2022-09-12 19:36 | NUR ---
RECEIVED REPORT FROM NOC SHIFT RN. PATIENT IS ALERT & ORIENTED X4, AND SPEAKS [place]. VITAL SIGNS STABLE. PATIENT TOLERATES PO MEDICATIONS AND DIET WELL. PATIENT PARTICIPATES WITH PHYSICAL AND OCCUPATIONAL THERAPY SCHEDULED. PATIENT HAD 1 SMALL BOWEL MOVEMENT, AND VOIDS ADEQUATELY. PATIENT'S IV LINE WAS INFILTRATED. RN REMOVED IV. CATHETER TIP INTACT. PATIENT HAD COMPLAINTS OF PAIN. RN GAVE MEDICATIONS ORDERED. RN NOTIFIED MD REGARDING PAIN. NEW PAIN MEDICATION GIVEN. PATIENT PAIN CONTROLLED DURING SHIFT. WHEN PATIENT GOT UP WITH PHYSICAL THERAPY, PT NOTED THE INCISION AND INFORMED RN. RN ASSESSED. RN NOTIFIED TRICOT KNITTING MACHINE OPERATOR, WOUND CARE NURSE, AND MD. ALL VISITED THE PATIENT. PATIENT WENT DOWN FOR CT SCAN. NO ACUTE DISTRESS NOTED. ALL NEEDS MET AT THIS TIME. FALL PRECAUTIONS IN PLACE. ENDORSED CARE TO SETTLEMENT TECHNICIAN RN FOR CONTINUATION OF CARE.
[2022-09-12 20:44] VITALS: BP 114/63
[2022-09-12] MEDS: SENNOSIDES 1 TABLET PO SCH (21:00)
[2022-09-12] MEDS: diphenhydrAMINE 50 MG CAPSULE PO SCH (21:00)
[2022-09-12] MEDS: CYCLOBENZAPRINE HCL 10 MG TABLET PO SCH (21:01)
[2022-09-13] MEDS: HYDROMORPHONE HCL 2 MG TABLET PO PRN ×4 (01:32→20:59)
[2022-09-13 04:11] VITALS: BP 134/72
[2022-09-13 07:42] VITALS: BP 143/82
[2022-09-13] MEDS: ENSURE CLEAR 240 ML LIQUID (MIX BERRY) PO SCH ×2 (08:45→17:21)
[2022-09-13] MEDS: DOCUSATE SODIUM 250 MG CAPSULE PO SCH ×2 (08:46→20:56)
[2022-09-13] MEDS: CLONAZEPAM 0.5 MG TABLET PO SCH ×2 (08:46→17:20)
[2022-09-13] MEDS: FERROUS SULFATE 325 MG TABEC PO SCH (08:46)
[2022-09-13] MEDS: METOPROLOL TARTRATE 25 MG TABLET PO SCH ×2 (08:46→20:56)
[2022-09-13] MEDS: CARISOPRODOL 350 MG TABLET PO SCH ×3 (08:46→17:20)
[2022-09-13] MEDS: ENOXAPARIN SODIUM 40 MG/0.4 ML DISP.SYRIN SQ SCH (08:46)
[2022-09-13] MEDS: LISINOPRIL 20 MG TABLET PO SCH (08:47)
[2022-09-13] MEDS: GABAPENTIN 400 MG CAPSULE PO SCH ×3 (08:47→17:20)
[2022-09-13 15:55] VITALS: BP 169/79
[2022-09-13 20:30] VITALS: BP 168/70
[2022-09-13] MEDS: diphenhydrAMINE 50 MG CAPSULE PO SCH (20:56)
[2022-09-13] MEDS: CYCLOBENZAPRINE HCL 10 MG TABLET PO SCH (20:56)
[2022-09-13] MEDS: SENNOSIDES 1 TABLET PO SCH (20:56)
[2022-09-14] MEDS: HYDROMORPHONE HCL 2 MG TABLET PO PRN ×3 (03:23→19:59)
[2022-09-14 05:33] VITALS: BP 162/86
[2022-09-14 07:57] VITALS: BP 176/82
[2022-09-14] MEDS: FENTANYL 100MCG/HR PATCH TD SCH (08:11)
[2022-09-14] MEDS: CARISOPRODOL 350 MG TABLET PO SCH ×3 (08:11→16:38)
[2022-09-14] MEDS: CLONAZEPAM 0.5 MG TABLET PO SCH ×2 (08:12→16:39)
[2022-09-14] MEDS: DOCUSATE SODIUM 250 MG CAPSULE PO SCH ×2 (08:12→20:18)
[2022-09-14] MEDS: GABAPENTIN 400 MG CAPSULE PO SCH ×3 (08:12→16:38)
[2022-09-14] MEDS: LISINOPRIL 20 MG TABLET PO SCH (08:12)
[2022-09-14] MEDS: FERROUS SULFATE 325 MG TABEC PO SCH (08:12)
[2022-09-14] MEDS: METOPROLOL TARTRATE 25 MG TABLET PO SCH (08:12)
[2022-09-14] MEDS: ENSURE CLEAR 240 ML LIQUID (MIX BERRY) PO SCH ×2 (08:13→16:39)
[2022-09-14 15:45] VITALS: BP 173/79
--- NOTE | 2022-09-14 15:47 | NUR ---
INTERDISCIPLINARY TEAM CONFERENCE
[2022-09-14] MEDS ORDERED: hydrALAZINE HCL 25 MG TABLET PO PRN (18:15)
[2022-09-14 20:00] VITALS: BP 168/89
[2022-09-14] MEDS: diphenhydrAMINE 50 MG CAPSULE PO SCH (20:18)
[2022-09-14] MEDS: CYCLOBENZAPRINE HCL 10 MG TABLET PO SCH (20:18)
[2022-09-14] MEDS: METOPROLOL TARTRATE 50 MG TABLET PO SCH (20:31)
[2022-09-14] MEDS: SENNOSIDES 1 TABLET PO SCH (20:33)
[2022-09-15] MEDS: HYDROMORPHONE HCL 2 MG TABLET PO PRN ×3 (01:40→23:59)
--- NOTE | 2022-09-15 06:41 | NUR ---
Shift End Report: Medicated twice with Dilaudid 8 mg as ordered and needed for complaint of back pain with help. BP always elevated given Apresoline 25 mg this morning for SBP 161/91, HE 88bpm. All needs attended and met. Slept in between. Continue care as planned.
[2022-09-15 07:27] LABS: HEMATOCRIT 33.1 % (31.2-41.9); MEAN CORPUSCULAR HEMOGLOBIN 29.7 uug (24.7-32.8); PLATELET COUNT (AUTO) 407 K/uL (179-408)
[2022-09-15 07:36] LABS: ALANINE AMINOTRANSFERASE 31 U/L (14-59); ALKALINE PHOSPHATASE 272 U/L (50-136); ASPARTATE AMINOTRANSFERASE 23 U/L (15-37); BILIRUBIN,TOTAL 0.4 mg/dL (0.2-1.0); CARBON DIOXIDE 29 mmol/L (21-32); CHLORIDE 98 mmol/L (98-107); CREATININE 0.4 mg/dL (0.6-1.3); GLUCOSE 91 mg/dL (74-106); MAGNESIUM 1.7 mg/dL (1.8-2.4); PHOSPHOROUS 3.3 mg/dL (2.5-4.9); POTASSIUM 3.1 mmol/L (3.5-5.1); TOTAL PROTEIN, SERUM 6.2 g/dL (6.4-8.2); UREA NITROGEN, BLOOD 4 mg/dL (7-18)
[2022-09-15 07:47] VITALS: BP 151/78
[2022-09-15] MEDS: FERROUS SULFATE 325 MG TABEC PO SCH (08:37)
[2022-09-15] MEDS: DOCUSATE SODIUM 250 MG CAPSULE PO SCH ×2 (08:37→21:48)
[2022-09-15] MEDS: ENSURE CLEAR 240 ML LIQUID (MIX BERRY) PO SCH ×2 (08:37→17:33)
[2022-09-15] MEDS: GABAPENTIN 400 MG CAPSULE PO SCH ×3 (08:38→17:32)
[2022-09-15] MEDS: CARISOPRODOL 350 MG TABLET PO SCH ×3 (08:38→17:32)
[2022-09-15] MEDS: CLONAZEPAM 0.5 MG TABLET PO SCH ×2 (08:38→17:32)
[2022-09-15] MEDS: LISINOPRIL 20 MG TABLET PO SCH (08:39)
[2022-09-15] MEDS: METOPROLOL TARTRATE 50 MG TABLET PO SCH ×2 (08:39→21:50)
[2022-09-15] MEDS ORDERED: POTASSIUM CHLORIDE 20 MEQ TAB.PRT.SR PO ONE (10:00)
[2022-09-15] MEDS ORDERED: MAGNESIUM OXIDE 400 MG TABLET PO ONE (11:00)
--- NOTE | 2022-09-15 11:03 | NUR ---
Klonopin and Mag Oxide barcodes DO NOT SCAN into the computer. The Klonopin also did not scan YESTERDAY. Notified Josse in Pharmacy now, he says that the Mag Oxide never scans because of the way the induction furnace operator made the barcode. For the Klonopin he will try to scan it and fix it right now.
[2022-09-15 20:00] VITALS: BP 143/77
[2022-09-15] MEDS: diphenhydrAMINE 50 MG CAPSULE PO SCH (21:48)
[2022-09-15] MEDS: SENNOSIDES 1 TABLET PO SCH (21:49)
[2022-09-15] MEDS: CYCLOBENZAPRINE HCL 10 MG TABLET PO SCH (21:49)
--- NOTE | 2022-09-15 23:00 | NUR ---
1925-The patient is aox4. Vital signs stable. The patient has no sob. Call light within reach, two side rails up, bed at lowest position, and bed alarm on, wheels lock. Will continue to monitor throughout the shift. 2300- Patient request for a heat pack. Item is given to the patient. Patient states that, "Heat packs help her to get sleep." The patient has no complains of pain or sob. Will continue to monitor the patient throughout the shift. 0100- The patient request for a warm blanket. Item is given to the patient. Will continue to monitor throughout the shift. 0400- The patient is asleep and has no sob or complains of pain. The patient request for extra water. Items are given to the patient. Will continue to monitor throughout the shift.
[2022-09-16] MEDS ORDERED: TEMAZEPAM 15 MG CAPSULE PO ONE (01:45)
[2022-09-16 04:00] VITALS: BP 139/63
[2022-09-16 07:55] VITALS: BP 150/60
[2022-09-16 08:16] LABS: CREATININE 0.5 mg/dL (0.6-1.3); POTASSIUM 4.5 mmol/L (3.5-5.1)
[2022-09-16] MEDS: DOCUSATE SODIUM 250 MG CAPSULE PO SCH ×2 (08:23→21:22)
[2022-09-16] MEDS: GABAPENTIN 400 MG CAPSULE PO SCH ×3 (08:23→16:46)
[2022-09-16] MEDS: METOPROLOL TARTRATE 50 MG TABLET PO SCH ×2 (08:23→21:11)
[2022-09-16] MEDS: LISINOPRIL 20 MG TABLET PO SCH (08:24)
[2022-09-16] MEDS: FERROUS SULFATE 325 MG TABEC PO SCH (08:24)
[2022-09-16] MEDS: CARISOPRODOL 350 MG TABLET PO SCH ×3 (08:24→16:46)
[2022-09-16] MEDS: CLONAZEPAM 0.5 MG TABLET PO SCH ×2 (08:25→16:46)
[2022-09-16] MEDS: ENSURE CLEAR 240 ML LIQUID (MIX BERRY) PO SCH ×2 (08:26→17:12)
[2022-09-16] MEDS: HYDROMORPHONE HCL 2 MG TABLET PO PRN ×2 (09:56→16:00)
--- NOTE | 2022-09-16 14:03 | NUR ---
0730-Patient in bed, awake, appears to be comfortable. No s/s of physical or respiratory distress. Encouraged patient to use call light for help when needed with good understanding. 0900-Scheduled medications administered as ordered by MD with no ASE noted. 0930-OOB ambulating ad-angélica with therapy and down to the gym. 1400-Patient in bed, no apparent distress noted; daughter at bedside visiting.
--- NOTE | 2022-09-16 19:43 | NUR ---
NSG: Received Patient lying in bed, awake,alert and oriented x4. patient appears to be comfortable. No s/s of physical or respiratory distress. Encouraged patient to use call light for help when needed with good understanding. call light w/in reach.
[2022-09-16 20:20] VITALS: BP 142/77
[2022-09-16] MEDS: SENNOSIDES 1 TABLET PO SCH (21:11)
[2022-09-16] MEDS: CYCLOBENZAPRINE HCL 10 MG TABLET PO SCH (21:11)
[2022-09-16] MEDS: diphenhydrAMINE 50 MG CAPSULE PO SCH (21:11)
[2022-09-17] MEDS: HYDROMORPHONE HCL 2 MG TABLET PO PRN ×2 (02:46→11:01)
[2022-09-17 04:32] VITALS: BP 139/72
--- NOTE | 2022-09-17 06:45 | NUR ---
NSG; Patient slept intermittently, easy to arouse, in no acute distress. Medicated for pain as ordered. assisted to use the bathroom. call light w/in reach.
[2022-09-17 07:46] VITALS: BP 161/87
[2022-09-17] MEDS: CLONAZEPAM 0.5 MG TABLET PO SCH ×2 (08:33→16:29)
[2022-09-17] MEDS: CARISOPRODOL 350 MG TABLET PO SCH ×3 (08:33→16:29)
[2022-09-17] MEDS: DOCUSATE SODIUM 250 MG CAPSULE PO SCH (08:33)
[2022-09-17] MEDS: LISINOPRIL 20 MG TABLET PO SCH (08:34)
[2022-09-17] MEDS: FERROUS SULFATE 325 MG TABEC PO SCH (08:34)
[2022-09-17] MEDS: GABAPENTIN 400 MG CAPSULE PO SCH ×3 (08:34→16:29)
[2022-09-17] MEDS: FENTANYL 100MCG/HR PATCH TD SCH (08:35)
[2022-09-17] MEDS: ENSURE CLEAR 240 ML LIQUID (MIX BERRY) PO SCH ×2 (08:36→16:29)
[2022-09-17] MEDS: METOPROLOL TARTRATE 50 MG TABLET PO SCH (08:36)
[2022-09-17] MEDS ORDERED: LIDOCAINE HCL 1% 20 ML VIAL IJ ONE (11:00)
--- NOTE | 2022-09-17 11:30 | NUR ---
Dr. Nelson drained the fluid from the surgery site on the back and sample sent to the lab per Dr. Nelson request.
[2022-09-17 15:56] VITALS: BP 151/65
--- NOTE | 2022-09-17 17:47 | NUR ---
Pt. was discharged from ARU and admitted to [facility] unit. Discharge document done and all necessary document signed. Body check done and printed and placed in pt. chart. Pt. noted to be stable during the shift. No acute distress noted. Ambulate to bathroom with assist. Alert and oriented x4. Will keep monitoring the pt.
[2022-09-17] MEDS: IV NS 1000 ML 1,000 ML IV PRN (18:30)
[2022-09-18] MEDS ORDERED: METO50TA16 PO (14:59)
[2022-09-18] MEDS ORDERED: SENN-18 PO (14:59)
[2022-09-18] MEDS ORDERED: GABA800T11 PO (14:59)
[2022-09-18] MEDS ORDERED: HYDR-894 PO (14:59)
[2022-09-18] MEDS ORDERED: NALO0.4V2 IV (14:59)
[2022-09-18] MEDS ORDERED: CYCL10TA9 PO (14:59)
[2022-09-18] MEDS ORDERED: DIPH50CA37 PO (14:59)
[2022-09-18] MEDS ORDERED: CLON0.5T4 PO (14:59)
[2022-09-18] MEDS ORDERED: LISI20TA30 PO (14:59)
[2022-09-19] MEDS ORDERED: IPRA0.2S6 NEB (14:05)
[2022-09-19] MEDS ORDERED: BISA10SU12 RC (14:05)
[2022-09-19] MEDS ORDERED: LACT296L PO (14:05)
[2022-09-19] MEDS ORDERED: PANT20TA2 PO (14:06)
[2022-09-19] MEDS ORDERED: MULT-594 PO (14:06)
== END 2022-09-17 20:19 | disposition short-term general hospital (02) | DRG 559 ==
PROVIDERS: ADMIT Physical Medicine & Rehabilitation Pain Medicine; ATTEND Physical Medicine & Rehabilitation Pain Medicine
DX: Z47.89 Encounter for other orthopedic aftercare (principal); E43 Unspecified severe protein-calorie malnutrition; D68.59 Other primary thrombophilia; M51.16 Intervertebral disc disorders with radiculopathy, lumbar region; M40.295 Other kyphosis, thoracolumbar region; M47.26 Other spondylosis with radiculopathy, lumbar region; Z98.1 Arthrodesis status; I10 Essential (primary) hypertension; M19.90 Unspecified osteoarthritis, unspecified site; Z79.891 Long term (current) use of opiate analgesic; F32.A Depression, unspecified; F41.9 Anxiety disorder, unspecified; G89.18 Other acute postprocedural pain; G89.4 Chronic pain syndrome; Z87.891 Personal history of nicotine dependence; Z88.2 Allergy status to sulfonamides; Z88.0 Allergy status to penicillin; Z88.1 Allergy status to other antibiotic agents; Z88.8 Allergy status to other drugs, medicaments and biological substances
CPT/HCPCS: 36415; 71250; 83615; 83735; 83986; 84100; 84155; 85025; 87205; 97535-GO-CO; A4663; J1650; J1885; J3490; J7040; Q0163

== ENCOUNTER 2022-09-17 21:01 | Inpatient (IN) | payer MEDICARE, BC ==
[2022-09-17 20:20] VITALS: BP 143/73
--- NOTE | 2022-09-17 20:20 | NUR ---
patient admitted from rehab to [facility] in stable inj condition. no sob or resp distress noted. alert oriented x4 and able to make needs known. patient's iv dislodged and is refusing to have new iv line. per patient if she does not have any iv fluids or iv antibiotic and is taking meds PO, she does not want iv line for now.
[~2022-09-17 21:01] MED LIST changes: -AMLO-212 PO; +CARI350T PO; -DOCU-141 PO; +DOCU250C14 PO; +FENT1PAT23 TD; +FERR325T28 PO; +GABA-532 PO; +HYDR2TAB4 PO; +IPRA0.2S48 NEB; +LACT10SO3 PO; +LACT296L PO; +LIDO30AD10 TD; -MAGN400O6 PO; +METO25TA6 PO; -OXYC10TA49 PO; +RAMI10CA69 PO; -RAMI5CAP66 PO; +TIZA4CAP PO; +[UNRECOGNIZED DRUG - CODE] MC
[2022-09-17] MEDS ORDERED: BISACODYL 10 MG SUPP.RECT RC PRN (22:15)
[2022-09-17] MEDS ORDERED: NALOXONE HCL 0.4 MG/ML AMPUL IV PRN ×2 (22:15)
[2022-09-17] MEDS ORDERED: hydrALAZINE HCL 25 MG TABLET PO PRN (22:15)
[2022-09-17] MEDS ORDERED: LACTULOSE 20 G/30 ML LIQUID UDC PO PRN (22:15)
[2022-09-17] MEDS ORDERED: IPRATROPIUM BROMIDE 0.5 MG/2.5 ML NEBU NEB PRN (22:15)
[2022-09-17] MEDS ORDERED: ONDANSETRON 4 MG/2 ML VIAL IV PRN (22:15)
[2022-09-17] MEDS: CYCLOBENZAPRINE HCL 10 MG TABLET PO SCH (22:36)
[2022-09-17] MEDS: DOCUSATE SODIUM 250 MG CAPSULE PO SCH (22:37)
[2022-09-17] MEDS: METOPROLOL TARTRATE 50 MG TABLET PO SCH (22:37)
[2022-09-17] MEDS: CARISOPRODOL 350 MG TABLET PO SCH (22:37)
[2022-09-17] MEDS: SENNOSIDES 1 TABLET PO SCH (22:37)
[2022-09-17] MEDS: diphenhydrAMINE 50 MG CAPSULE PO SCH (22:37)
[2022-09-18 05:10] VITALS: BP 130/69
[2022-09-18 06:41] LABS: MEAN CORPUSCULAR HEMOGLOBIN 29.4 uug (24.7-32.8); MEAN CORPUSCULAR VOLUME 89.7 fL (75.5-95.3); PLATELET COUNT (AUTO) 363 K/uL (179-408)
[2022-09-18 07:10] LABS: BILIRUBIN,TOTAL 0.3 mg/dL (0.2-1.0); CREATININE 0.5 mg/dL (0.6-1.3); PHOSPHOROUS 4.4 mg/dL (2.5-4.9); POTASSIUM 4.4 mmol/L (3.5-5.1); TOTAL PROTEIN, SERUM 6.1 g/dL (6.4-8.2)
[2022-09-18] MEDS: ENSURE CLEAR 240 ML LIQUID (MIX BERRY) PO SCH ×4 (08:00→22:26)
[2022-09-18] MEDS: HYDROMORPHONE HCL 2 MG TABLET PO PRN ×2 (08:52→22:37)
[2022-09-18] MEDS: CARISOPRODOL 350 MG TABLET PO SCH ×3 (09:56→16:49)
[2022-09-18] MEDS: FERROUS SULFATE 325 MG TABEC PO SCH (09:57)
[2022-09-18] MEDS: LISINOPRIL 20 MG TABLET PO SCH (09:57)
[2022-09-18] MEDS: DOCUSATE SODIUM 250 MG CAPSULE PO SCH ×2 (09:57→22:25)
[2022-09-18] MEDS: METOPROLOL TARTRATE 50 MG TABLET PO SCH ×2 (09:58→22:25)
[2022-09-18] MEDS: CLONAZEPAM 0.5 MG TABLET PO SCH ×2 (09:58→16:49)
[2022-09-18] MEDS: GABAPENTIN 400 MG CAPSULE PO SCH ×3 (09:58→16:49)
[2022-09-18] MEDS: LIDOCAINE 5% PATCH TD SCH (09:59)
[2022-09-18] MEDS ORDERED: METO50TA16 PO (14:59)
[2022-09-18] MEDS ORDERED: HYDR-894 PO (14:59)
[2022-09-18] MEDS ORDERED: CLON0.5T4 PO (14:59)
[2022-09-18] MEDS ORDERED: DIPH50CA37 PO (14:59)
[2022-09-18] MEDS ORDERED: NALO0.4V2 IV (14:59)
[2022-09-18] MEDS ORDERED: LISI20TA30 PO (14:59)
[2022-09-18] MEDS ORDERED: GABA800T11 PO (14:59)
[2022-09-18] MEDS ORDERED: CYCL10TA9 PO (14:59)
[2022-09-18] MEDS ORDERED: SENN-18 PO (14:59)
[2022-09-18 20:00] VITALS: BP 140/76
[2022-09-18] MEDS: diphenhydrAMINE 50 MG CAPSULE PO SCH (22:24)
[2022-09-18] MEDS: CYCLOBENZAPRINE HCL 10 MG TABLET PO SCH (22:25)
[2022-09-18] MEDS: SENNOSIDES 1 TABLET PO SCH (22:26)
[2022-09-19] MEDS: HYDROMORPHONE HCL 2 MG TABLET PO PRN ×3 (05:32→17:08)
[2022-09-19] MEDS: FERROUS SULFATE 325 MG TABEC PO SCH (09:13)
[2022-09-19] MEDS: GABAPENTIN 400 MG CAPSULE PO SCH ×2 (09:13→12:23)
[2022-09-19] MEDS: DOCUSATE SODIUM 250 MG CAPSULE PO SCH (09:14)
[2022-09-19] MEDS: CARISOPRODOL 350 MG TABLET PO SCH ×2 (09:14→12:23)
[2022-09-19] MEDS: CLONAZEPAM 0.5 MG TABLET PO SCH (09:14)
[2022-09-19] MEDS: LISINOPRIL 20 MG TABLET PO SCH (09:18)
[2022-09-19] MEDS: METOPROLOL TARTRATE 50 MG TABLET PO SCH (09:18)
[2022-09-19] MEDS: LIDOCAINE 5% PATCH TD SCH (09:21)
[2022-09-19] MEDS: ENSURE CLEAR 240 ML LIQUID (MIX BERRY) PO SCH (09:21)
[2022-09-19 11:36] VITALS: BP 148/75
[2022-09-19] MEDS ORDERED: IPRA0.2S6 NEB (14:05)
[2022-09-19] MEDS ORDERED: LACT296L PO (14:05)
[2022-09-19] MEDS ORDERED: BISA10SU12 RC (14:05)
[2022-09-19] MEDS ORDERED: MULT-594 PO (14:06)
[2022-09-19] MEDS ORDERED: PANT20TA2 PO (14:06)
[2022-09-19 16:33] VITALS: BP 131/50
--- NOTE | 2022-09-19 17:29 | NUR ---
pt is alert and oriented x4, received Dilauded at 1715 before she was transferred to [facility]. Marcial at bedside and she is getting picked up by ambulance.
[2022-09-20] MEDS ORDERED: FENTANYL 100MCG/HR PATCH TD SCH (09:00)
== END 2022-09-19 17:35 | DRG 551 ==
LOC: MEDSURG3 21:01
PROVIDERS: ADMIT Internal Medicine; ATTEND Internal Medicine
DX: M54.89 Other dorsalgia (principal); E43 Unspecified severe protein-calorie malnutrition; D68.69 Other thrombophilia; G89.18 Other acute postprocedural pain; I10 Essential (primary) hypertension; Z74.09 Other reduced mobility; Z88.0 Allergy status to penicillin; Z88.2 Allergy status to sulfonamides; Z98.1 Arthrodesis status; Z87.891 Personal history of nicotine dependence; V89.2XXS Person injured in unspecified motor-vehicle accident, traffic, sequela; D64.9 Anemia, unspecified; E87.6 Hypokalemia; Z68.20 Body mass index [BMI] 20.0-20.9, adult
CPT/HCPCS: 36415; 83735; 84100; 85025; G0378; Q0163

== ENCOUNTER 2025-03-21 14:20 | Inpatient (IN) | payer MEDICARE, BC ==
[~2025-03-21] VITALS: Ht 167.6 cm; Wt 67.6 kg
[~2025-03-21 14:20] MED LIST changes: +BISA10SU12 RC; -BISA10SU61 RC; +CLON0.5T4 PO; +CYCL10TA9 PO; +DIPH50CA37 PO; -GABA-532 PO; +GABA800T11 PO; +HYDR-894 PO; -IPRA0.2S48 NEB; +IPRA0.2S6 NEB; -LIDO30AD10 TD; +LISI20TA30 PO; -METO25TA6 PO; +METO50TA16 PO; +MULT-594 PO; +PANT20TA2 PO; -RAMI10CA69 PO; +SENN-18 PO; -SENN-261 PO; -TIZA4CAP PO; -[UNRECOGNIZED DRUG - CODE] MC
[2025-03-25 13:06] VITALS: BP 131/50; TEMP 98.1
[2025-03-25 14:34] VITALS: BP 131/50; TEMP 98.1
[2025-03-28] MEDS ORDERED: CARI250T9 PO (20:06)
[2025-03-28] MEDS ORDERED: DULO20CA PO (20:06)
[2025-03-28] MEDS ORDERED: ACET650T10 PO (20:06)
[2025-03-28] MEDS ORDERED: GABA800T PO (20:06)
[2025-03-28] MEDS ORDERED: AMLO5TAB4 PO (20:06)
[2025-03-28] MEDS ORDERED: BISA10SU95 RC (20:06)
[2025-03-28] MEDS ORDERED: BISA-79 PO (20:06)
[2025-03-28] MEDS ORDERED: ATOR40TA PO (20:06)
[2025-03-28] MEDS ORDERED: HYDROCODONE/APAP 10-325 MG TABLET PO PRN (21:30)
[2025-03-28] MEDS ORDERED: HYDROMORPHONE HCL 2 MG TABLET PO PRN (21:30)
[2025-03-28] MEDS: HYDROMORPHONE HCL 2 MG TABLET PO PRN (21:44)
[2025-03-28] MEDS ORDERED: NA P133E RC (22:05)
[2025-03-28] MEDS ORDERED: TEMA30CA PO (22:05)
[2025-03-28] MEDS ORDERED: PANT40TA2 PO (22:05)
[2025-03-28] MEDS ORDERED: LIDO700A30 TP (22:05)
[2025-03-28] MEDS ORDERED: TAMS-3 PO (22:05)
[2025-03-28] MEDS ORDERED: MULT-594 PO (22:05)
[2025-03-28] MEDS ORDERED: ONDA4TAB11 PO (22:05)
[2025-03-28] MEDS ORDERED: LOSA25TA27 PO (22:05)
[2025-03-28] MEDS ORDERED: POLY119P2 PO (22:05)
[2025-03-28] MEDS ORDERED: THIA100T13 PO (22:05)
[2025-03-28] MEDS ORDERED: MAGN400O6 PO (22:05)
[2025-03-28] MEDS ORDERED: BISACODYL 10 MG SUPP.RECT RC PRN ×2 (22:15)
[2025-03-28] MEDS ORDERED: BISACODYL 5 MG TABLET.DR PO PRN (22:15)
[2025-03-28] MEDS ORDERED: LIDOCAINE 5% PATCH TD PRN (22:15)
[2025-03-28] MEDS ORDERED: MAGNESIUM HYDROXIDE 30 ML LIQUID UDC PO PRN (22:15)
[2025-03-28] MEDS ORDERED: ONDANSETRON ODT 4 MG TAB.RAPDIS SL PRN (22:15)
[2025-03-28] MEDS ORDERED: POLYETHYLENE GLYCOL 3350 238 GM POWDER PO PRN (22:15)
[2025-03-28] MEDS ORDERED: MIRALAX 17 GM POWD.PACK PO PRN (22:45)
[2025-03-28 22:52] VITALS: BP 139/73; TEMP 97.6; O2SAT 98
[2025-03-28] MEDS: TEMAZEPAM 15 MG CAPSULE PO PRN (22:59)
[2025-03-29] MEDS ORDERED: REMEDY ESSENTIAL ZINC PASTE 113 GM TOP PRN (01:00)
[2025-03-29 05:00] VITALS: BP 131/32; TEMP 97.5; O2SAT 98
[2025-03-29] MEDS: GABAPENTIN 400 MG CAPSULE PO SCH (06:54)
[2025-03-29] MEDS: PANTOPRAZOLE SODIUM 40 MG TABLET.DR PO SCH (06:54)
[2025-03-29 08:00] VITALS: BP 128/65; TEMP 97.7; O2SAT 98
[2025-03-29] MEDS: TAMSULOSIN HCL 0.4 MG CAP.SR.24H PO SCH (08:55)
[2025-03-29] MEDS: HYDROCODONE/APAP 10-325 MG TABLET PO PRN (08:55)
[2025-03-29] MEDS: THIAMINE HCL 100 MG TABLET PO SCH (08:55)
[2025-03-29] MEDS: ENSURE CLEAR 240 ML LIQUID (MIX BERRY) PO SCH (08:55)
[2025-03-29] MEDS: AMLODIPINE 5 MG TABLET PO SCH (08:56)
[2025-03-29] MEDS ORDERED: LOSARTAN POTASSIUM 25 MG TABLET PO SCH (09:00)
[2025-03-29] MEDS ORDERED: DULOXETINE 20 MG CAPSULE.DR PO SCH (09:00)
[2025-03-29 10:40] LABS: PLATELET COUNT (AUTO) 279 K/uL (179-408); RED BLOOD CELL COUNT(AUTO) 3.58 MIL/uL (3.63-4.92); RED CELL DISTRIBUTION WIDTH 14.1 % (12.3-17.7); WHITE BLOOD COUNT (AUTO) 4.7 K/uL (3.8-11.8)
[2025-03-29 10:58] LABS: ASPARTATE AMINOTRANSFERASE 18.0 U/L (15-37); CREATININE 0.5 mg/dL (0.6-1.3); SODIUM SERUM 136.0 mmol/L (136-145); TOTAL PROTEIN, SERUM 6.8 g/dL (6.4-8.2); UREA NITROGEN, BLOOD 9.0 mg/dL (7-18)
[2025-03-29] MEDS ORDERED: HYDR-3980 PO (11:29)
[2025-03-29] MEDS ORDERED: HYDR-894 PO (11:33)
[2025-03-29] MEDS ORDERED: LIDOCAINE 5% PATCH TD PRN (12:06)
[2025-03-29] MEDS: MORPHINE SULFATE SR 15 MG TABLET.SA PO SCH (13:05)
[2025-03-29] MEDS: HYDROMORPHONE HCL 2 MG TABLET PO PRN (16:07)
[2025-03-29 16:41] VITALS: BP 120/66; TEMP 97.9; O2SAT 97
[2025-03-29] MEDS: ATORVASTATIN 40 MG TABLET PO SCH (20:21)
[2025-03-29 22:46] VITALS: BP 121/52; TEMP 98.1; O2SAT 95
[2025-03-30 07:32] VITALS: BP 139/73; TEMP 97.6; O2SAT 98
[2025-03-30 07:39] VITALS: BP 136/64; TEMP 97.8; O2SAT 97
[2025-03-30 16:00] VITALS: BP 126/74; TEMP 97.6
[2025-03-30 20:10] VITALS: BP 124/83; TEMP 97.9; O2SAT 96
[2025-03-31 06:00] VITALS: BP 138/68; TEMP 98.4; O2SAT 96
[2025-03-31 07:32] VITALS: BP 122/74; TEMP 97.2; O2SAT 96
[2025-03-31] MEDS: MORPHINE SULFATE SR 30 MG TABLET.SA PO SCH (12:47)
[2025-03-31 16:00] VITALS: BP 131/69; TEMP 97.6; O2SAT 97
[2025-03-31 20:59] VITALS: BP 143/65; TEMP 98.2; O2SAT 99
[2025-03-31] MEDS: MORPHINE SULFATE SR 15 MG TABLET.SA PO SCH (21:13)
[2025-04-01 05:00] VITALS: BP 137/73; TEMP 97.6; O2SAT 98
[2025-04-01 08:00] VITALS: BP 128/51; TEMP 97.8; O2SAT 95
[2025-04-01] MEDS: MORPHINE SULFATE SR 30 MG TABLET.SA PO SCH (08:08)
[2025-04-01 17:00] VITALS: BP 133/76; TEMP 98.1; O2SAT 98
[2025-04-01 23:52] VITALS: BP 129/75; TEMP 98.1; O2SAT 95
[2025-04-02 07:22] VITALS: BP 140/68; TEMP 97.3; O2SAT 95
[2025-04-02 08:47] VITALS: BP 126/63; TEMP 97.9; O2SAT 97
[2025-04-02 11:43] LABS: PLATELET COUNT (AUTO) 287 K/uL (179-408); RED BLOOD CELL COUNT(AUTO) 3.49 MIL/uL (3.63-4.92); RED CELL DISTRIBUTION WIDTH 14.3 % (12.3-17.7); WHITE BLOOD COUNT (AUTO) 5.4 K/uL (3.8-11.8)
[2025-04-02 11:54] LABS: CREATININE 0.6 mg/dL (0.6-1.3); SODIUM SERUM 138.0 mmol/L (136-145); UREA NITROGEN, BLOOD 10.0 mg/dL (7-18)
[2025-04-02 16:06] VITALS: BP 105/58; TEMP 98; O2SAT 96
[2025-04-02 20:00] VITALS: BP 100/63; TEMP 98; O2SAT 96
[2025-04-03 05:00] VITALS: BP 130/49; TEMP 97.9; O2SAT 97
[2025-04-03 08:00] VITALS: BP 127/63; TEMP 97.9; O2SAT 96
[2025-04-03] MEDS: ERYTHROMYCIN 0.5% OPHT OINT 3.5 GM TUBE EACHEYE SCH (09:45)
[2025-04-03 16:06] VITALS: BP 124/69; TEMP 97.7; O2SAT 96
[2025-04-03 20:19] VITALS: BP 115/71; TEMP 97.7; O2SAT 99
[2025-04-04 05:15] VITALS: BP 144/74; TEMP 97.7; O2SAT 98
[2025-04-04 07:56] VITALS: BP 96/58; TEMP 97.6; O2SAT 98
[2025-04-04 16:00] VITALS: BP 132/56; TEMP 97.6; O2SAT 96
[2025-04-04 21:00] VITALS: BP 88/34
[2025-04-04] MEDS ORDERED: IV NORMAL SALINE 500 ML BAG IV ONE (21:45)
[2025-04-04 22:01] LABS: PLATELET COUNT (AUTO) 285 K/uL (179-408); RED BLOOD CELL COUNT(AUTO) 3.41 MIL/uL (3.63-4.92); RED CELL DISTRIBUTION WIDTH 14.7 % (12.3-17.7); WHITE BLOOD COUNT (AUTO) 15.4 K/uL (3.8-11.8)
[2025-04-04 22:08] LABS: CREATININE 1.0 mg/dL (0.6-1.3); SODIUM SERUM 134.0 mmol/L (136-145); UREA NITROGEN, BLOOD 14.0 mg/dL (7-18)
[2025-04-04 22:22] LABS: ABG BASE EXCESS -3.2 mmol/L (-2.0-3.0); ABG HCO3 20.1 mmol/L (21.0-28.0); ABG PCO2 30.5 mmHg (32.0-45.0); ABG PH 7.437 (7.350-7.450); ABG PO2 78.1 mmHg (83.0-108.0); ABG SITE RIGHT BRACHIAL; ABG TOTAL HEMOGLOBIN 11.2 G/dL (12.0-16.0); AaDO2 96.1 mmHg; FIO2 28.0 %; FLOW, BLOOD GAS 2.00 L/min (0.00-30.00)
[2025-04-04] MEDS: IV NORMAL SALINE 1000 ML BAG IV ONE (22:55)
[2025-04-04] MEDS ORDERED: VANCOMYCIN IV 1,000 MG in IV NORMAL SALINE 250 ML IV ONE (23:15)
== END 2025-04-04 23:30 | disposition short-term general hospital (02) | DRG 950 ==
PROVIDERS: ADMIT Physical Medicine & Rehabilitation Pain Medicine; ATTEND Physical Medicine & Rehabilitation Pain Medicine
DX: T84.298D Other mechanical complication of internal fixation device of other bones, subsequent encounter (principal); Y83.8 Other surgical procedures as the cause of abnormal reaction of the patient, or of later complication, without mention of misadventure at the time of the procedure; Y79.3 Surgical instruments, materials and orthopedic devices (including sutures) associated with adverse incidents; M53.3 Sacrococcygeal disorders, not elsewhere classified; M41.87 Other forms of scoliosis, lumbosacral region; Z87.891 Personal history of nicotine dependence; S32.301D Unspecified fracture of right ilium, subsequent encounter for fracture with routine healing; X58.XXXD Exposure to other specified factors, subsequent encounter; M81.0 Age-related osteoporosis without current pathological fracture; R33.8 Other retention of urine; Z88.2 Allergy status to sulfonamides; Z88.0 Allergy status to penicillin; G89.4 Chronic pain syndrome; I10 Essential (primary) hypertension; G47.00 Insomnia, unspecified; Z98.1 Arthrodesis status; R53.1 Weakness; Z88.1 Allergy status to other antibiotic agents; Z88.8 Allergy status to other drugs, medicaments and biological substances; Z91.048 Other nonmedicinal substance allergy status
CPT/HCPCS: 36415; 36600; 71045; 83605; 85025; 87040; 97535-GO-CO; J1956; J3373; J7040; Q0162

== ENCOUNTER 2025-04-04 23:06 | Inpatient (IN) | payer MEDICARE, BC ==
[~2025-04-04] VITALS: Ht 167.6 cm; Wt 63.0 kg
[2025-04-04 22:00] VITALS: O2SAT 95
[~2025-04-04 23:06] MED LIST changes: +ACET650T10 PO; +AMLO5TAB4 PO; +ATOR40TA PO; +BISA-79 PO; +CARI250T9 PO; -CARI350T PO; -CLON0.5T4 PO; -CYCL10TA9 PO; -DIPH50CA37 PO; -DOCU250C14 PO; +DULO20CA PO; -FENT1PAT23 TD; -FERR325T28 PO; +GABA800T PO; -GABA800T11 PO; +HYDR-3980 PO; -IPRA0.2S6 NEB; -LACT10SO3 PO; -LACT296L PO; +LIDO700A30 TP; -LISI20TA30 PO; +LOSA25TA27 PO; +MAGN400O6 PO; -METO50TA16 PO; +NA P133E RC; +ONDA4TAB11 PO; -PANT20TA2 PO; +PANT40TA2 PO; +POLY119P2 PO; +TAMS-3 PO; +TEMA30CA PO; +THIA100T13 PO
[2025-04-05] VITALS (9 sets, daily range): BP systolic 82–106; BP diastolic 39–60; TEMP 98.9–101; O2SAT 93–99
[2025-04-05] MEDS ORDERED: ALBUTEROL SULFATE 2.5 MG/3 ML NEBU NEB PRN
[2025-04-05] MEDS ORDERED: ONDANSETRON 4 MG/2 ML VIAL IV PRN
[2025-04-05] MEDS ORDERED: HYDROCODONE/APAP 10-325 MG TABLET PO PRN
[2025-04-05] MEDS ORDERED: IPRATROPIUM BROMIDE 0.5 MG/2.5 ML NEBU NEB PRN
[2025-04-05] MEDS ORDERED: CARISOPRODOL 250 MG PO PRN
[2025-04-05] MEDS ORDERED: REMEDY ESSENTIAL ZINC PASTE 113 GM TP PRN
[2025-04-05] MEDS ORDERED: DOSING PER PHARMACY-ENOXAPARIN XX PRN (00:15)
[2025-04-05] MEDS ORDERED: VANCOMYCIN IV 200 ML ONE (00:56)
[2025-04-05] MEDS: ACETAMINOPHEN 325 MG TABLET PO PRN (01:01)
[2025-04-05] MEDS: IV NS 1000 ML 1,000 ML IV PRN (01:46)
[2025-04-05] MEDS: ENOXAPARIN SODIUM 60 MG/0.6 ML DISP.SYRIN SQ ONE (01:50)
[2025-04-05] MEDS: VANCOMYCIN IV 1,000 MG in IV DEXTROSE 5% 250 ML IV ONE (02:25)
[2025-04-05 04:32] LABS: *BILIRUBIN,URIN NEGATIVE (NEGATIVE); *BLOOD, URINE 1+ (NEGATIVE); *COLOR,URINE YELLOW (YELLOW); *KETONES,URINE NEGATIVE (NEGATIVE); *PROTEIN,URINE NEGATIVE (NEGATIVE); *UROBILINOGEN,URINE 1.0 E.U./dl (NORMAL); LEUKOCYTE ESTERASE ,URINE TRACE (NEGATIVE); NITRITE, URINE NEGATIVE (NEGATIVE); UGLUCOSE NEGATIVE (NEGATIVE)
[2025-04-05 04:38] LABS: *CLARITY,URINE SLIGHTLY CLOUDY (CLEAR)
[2025-04-05 04:53] LABS: SQUAMOUS EPITHELIAL CELL,UR FEW /HPF (NONE SEEN)
[2025-04-05] MEDS: HYDROCODONE/APAP 5-325MG TABLET PO PRN (06:25)
[2025-04-05] MEDS: PANTOPRAZOLE SODIUM 40 MG TABLET.DR PO SCH (06:42)
[2025-04-05] MEDS: GABAPENTIN 400 MG CAPSULE PO SCH (06:42)
[2025-04-05 07:53] LABS: PLATELET COUNT (AUTO) 216 K/uL (179-408); RED BLOOD CELL COUNT(AUTO) 3.09 MIL/uL (3.63-4.92); RED CELL DISTRIBUTION WIDTH 14.9 % (12.3-17.7); WHITE BLOOD COUNT (AUTO) 13.1 K/uL (3.8-11.8)
[2025-04-05 08:14] LABS: ASPARTATE AMINOTRANSFERASE 36.0 U/L (15-37); CREATININE 0.7 mg/dL (0.6-1.3); SODIUM SERUM 135.0 mmol/L (136-145); TOTAL PROTEIN, SERUM 5.8 g/dL (6.4-8.2); UREA NITROGEN, BLOOD 12.0 mg/dL (7-18)
[2025-04-05] MEDS: TAMSULOSIN HCL 0.4 MG CAP.SR.24H PO SCH (08:30)
[2025-04-05] MEDS: MULTIVITAMINS,THERAPEUTIC TABLET PO SCH (08:30)
[2025-04-05] MEDS: THIAMINE HCL 100 MG TABLET PO SCH (08:31)
[2025-04-05] MEDS: LIDOCAINE 5% PATCH TD PRN (08:35)
[2025-04-05] MEDS ORDERED: SWABABLE VALVE TRANSFER SET EA MC ONE (08:49)
[2025-04-05] MEDS ORDERED: IOHEXOL 350 100 ML INFUS..BTL ONE (08:49)
[2025-04-05] MEDS ORDERED: IV NORMAL SALINE 250 ML IV ONE (08:49)
[2025-04-05] MEDS ORDERED: LOSARTAN POTASSIUM 25 MG TABLET PO SCH ×2 (09:00→13:00)
[2025-04-05] MEDS ORDERED: DULOXETINE 20 MG CAPSULE.DR PO SCH ×2 (09:00)
[2025-04-05] MEDS ORDERED: POLYETHYLENE GLYCOL 3350 238 GM POWDER PO SCH (09:00)
[2025-04-05] MEDS: POTASSIUM CHLORIDE 20 MEQ TAB.PRT.SR PO ONE (10:53)
[2025-04-05] MEDS: ENOXAPARIN SODIUM 60 MG/0.6 ML DISP.SYRIN SQ SCH (10:54)
[2025-04-05] MEDS: VANCOMYCIN IV 1,000 MG in IV DEXTROSE 5% 250 ML IV SCH (13:56)
[2025-04-05] MEDS ORDERED: VANCOMYCIN HCL 750 MG in IV DEXTROSE 5% 250 ML IV SCH (14:00)
[2025-04-05] MEDS: MORPHINE SULFATE SR 30 MG TABLET.SA PO SCH (15:07)
[2025-04-05] MEDS: ATORVASTATIN 40 MG TABLET PO SCH (20:34)
[2025-04-05] MEDS: SENNOSIDES 1 TABLET PO SCH (20:34)
[2025-04-05] MEDS: ERYTHROMYCIN 0.5% OPHT OINT 3.5 GM TUBE EACHEYE SCH (20:40)
[2025-04-05] MEDS: MORPHINE SULFATE SR 15 MG TABLET.SA PO SCH (21:18)
[2025-04-06 00:33] VITALS: O2SAT 98
[2025-04-06 06:45] VITALS: BP 90/50; TEMP 99; O2SAT 92
[2025-04-06 09:06] LABS: PLATELET COUNT (AUTO) 237 K/uL (179-408); RED BLOOD CELL COUNT(AUTO) 3.25 MIL/uL (3.63-4.92); RED CELL DISTRIBUTION WIDTH 14.8 % (12.3-17.7); WHITE BLOOD COUNT (AUTO) 12.2 K/uL (3.8-11.8)
[2025-04-06 09:18] LABS: CREATININE 0.7 mg/dL (0.6-1.3); SODIUM SERUM 137.0 mmol/L (136-145); UREA NITROGEN, BLOOD 9.0 mg/dL (7-18)
[2025-04-06 12:00] VITALS: BP 102/39; TEMP 97.8; O2SAT 99
[2025-04-06 13:48] LABS: CREATININE 0.7 mg/dL (0.6-1.3); SODIUM SERUM 138.0 mmol/L (136-145); UREA NITROGEN, BLOOD 9.0 mg/dL (7-18)
[2025-04-06 16:06] VITALS: BP 108/46; TEMP 98.8; O2SAT 97
[2025-04-06] MEDS: NEUTRA PHOS PACKET PO ONE (17:21)
[2025-04-06 19:29] VITALS: BP 96/52; TEMP 97.8; O2SAT 97
[2025-04-06] MEDS: TEMAZEPAM 15 MG CAPSULE PO SCH (23:04)
[2025-04-07 02:08] VITALS: O2SAT 98
[2025-04-07 05:38] VITALS: BP 100/55; TEMP 97.2; O2SAT 100
[2025-04-07 07:43] LABS: PLATELET COUNT (AUTO) 198 K/uL (179-408); RED BLOOD CELL COUNT(AUTO) 2.73 MIL/uL (3.63-4.92); RED CELL DISTRIBUTION WIDTH 15.0 % (12.3-17.7); WHITE BLOOD COUNT (AUTO) 8.5 K/uL (3.8-11.8)
[2025-04-07 08:00] LABS: CREATININE 0.6 mg/dL (0.6-1.3); SODIUM SERUM 137.0 mmol/L (136-145); UREA NITROGEN, BLOOD 7.0 mg/dL (7-18)
[2025-04-07 11:34] VITALS: BP_SYST 94; BP_DIAS 40; BP_DIAS 60; TEMP 98.3; O2SAT 98
[2025-04-07] MEDS: NEUTRA PHOS PACKET PO ONE (14:03)
[2025-04-07] MEDS: VANCOMYCIN IV 1,000 MG in IV DEXTROSE 5% 250 ML IV SCH (14:05)
[2025-04-07 15:37] VITALS: BP 111/58; TEMP 98.9; O2SAT 96
[2025-04-07 19:32] VITALS: BP 129/63; TEMP 99.4; O2SAT 100
[2025-04-08 00:31] VITALS: O2SAT 98
[2025-04-08 05:57] VITALS: BP 121/73; TEMP 99; O2SAT 95
[2025-04-08 11:34] VITALS: BP 146/117; TEMP 98.9; O2SAT 97
[2025-04-08] MEDS ORDERED: LEVO750T46 PO (13:06)
[2025-04-08 15:45] VITALS: BP 134/73; TEMP 98.7; O2SAT 98
[2025-04-08 19:32] VITALS: BP 98/56; TEMP 98.7; O2SAT 97
[2025-04-09 05:22] VITALS: BP 122/62; TEMP 99.9; O2SAT 97
[2025-04-09 12:02] VITALS: BP 125/58; TEMP 98.4; O2SAT 95
[2025-04-09 12:50] LABS: PLATELET COUNT (AUTO) 268 K/uL (179-408); RED BLOOD CELL COUNT(AUTO) 3.11 MIL/uL (3.63-4.92); RED CELL DISTRIBUTION WIDTH 15.6 % (12.3-17.7); WHITE BLOOD COUNT (AUTO) 7.8 K/uL (3.8-11.8)
[2025-04-09 13:09] LABS: ASPARTATE AMINOTRANSFERASE 24.0 U/L (15-37); CREATININE 0.5 mg/dL (0.6-1.3); SODIUM SERUM 140.0 mmol/L (136-145); TOTAL PROTEIN, SERUM 6.8 g/dL (6.4-8.2); UREA NITROGEN, BLOOD 4.0 mg/dL (7-18)
[2025-04-09 16:28] VITALS: BP 119/46; TEMP 97.7; O2SAT 97
[2025-04-09] MEDS ORDERED: CEFEPIME HCL 1 G VIAL IV SCH (17:00)
[2025-04-09] MEDS: CEFEPIME HCL 2 GM in IV DEXTROSE 5% 100 ML IV SCH (17:53)
[2025-04-09 19:00] VITALS: BP 143/68; TEMP 98.6; O2SAT 95
[2025-04-09] MEDS: VANCOMYCIN IV 1,000 MG in IV DEXTROSE 5% 250 ML IV SCH (20:29)
[2025-04-09] MEDS ORDERED: NALOXONE HCL 0.4 MG/ML AMPUL IV PRN (21:45)
[2025-04-10] MEDS: HYDROCODONE/APAP 10-325 MG TABLET PO PRN (03:19)
[2025-04-10 06:00] VITALS: BP 137/70; TEMP 98.7; O2SAT 95
[2025-04-10 07:09] LABS: PLATELET COUNT (AUTO) 302 K/uL (179-408); RED BLOOD CELL COUNT(AUTO) 3.05 MIL/uL (3.63-4.92); RED CELL DISTRIBUTION WIDTH 15.3 % (12.3-17.7); WHITE BLOOD COUNT (AUTO) 7.8 K/uL (3.8-11.8)
[2025-04-10 07:21] LABS: CREATININE 0.6 mg/dL (0.6-1.3); SODIUM SERUM 141.0 mmol/L (136-145); UREA NITROGEN, BLOOD 7.0 mg/dL (7-18)
[2025-04-10 12:06] VITALS: BP 131/66; TEMP 98; O2SAT 98
[2025-04-10] MEDS ORDERED: NALOXONE HCL 0.4 MG/ML AMPUL IV PRN (12:45)
[2025-04-10] MEDS ORDERED: MIDAZOLAM HCL 2 MG/2 ML VIAL IV PRN (12:45)
[2025-04-10] MEDS ORDERED: FENTANYL 50 MCG/ML SYRINGE IV PRN (12:45)
[2025-04-10] MEDS ORDERED: FENTANYL CITRATE 100 MCG/2 ML AMPUL IVP PRN (13:00)
[2025-04-10] MEDS: OXYCODONE HCL 10 MG TAB.SR.12H PO SCH (13:49)
[2025-04-10 15:50] VITALS: BP 144/65; TEMP 98.4; O2SAT 98
[2025-04-10] MEDS: TEMAZEPAM 15 MG CAPSULE PO SCH (21:03)
[2025-04-10 21:51] VITALS: BP 115/72; TEMP 98.6; O2SAT 95
[2025-04-11 05:55] VITALS: BP 144/66; TEMP 98.6; O2SAT 94
[2025-04-11 06:48] LABS: PLATELET COUNT (AUTO) 341 K/uL (179-408); RED BLOOD CELL COUNT(AUTO) 2.80 MIL/uL (3.63-4.92); RED CELL DISTRIBUTION WIDTH 15.4 % (12.3-17.7); WHITE BLOOD COUNT (AUTO) 6.1 K/uL (3.8-11.8)
[2025-04-11 07:13] LABS: CREATININE 0.6 mg/dL (0.6-1.3); SODIUM SERUM 139.0 mmol/L (136-145); UREA NITROGEN, BLOOD 7.0 mg/dL (7-18)
[2025-04-11] MEDS: POTASSIUM CHLORIDE 20 MEQ TAB.PRT.SR PO ONE (10:19)
[2025-04-11] MEDS: VANCOMYCIN IV 1,000 MG in IV DEXTROSE 5% 250 ML IV SCH (11:01)
[2025-04-11 11:21] VITALS: BP 105/69; TEMP 98.6; O2SAT 95
[2025-04-11 16:06] VITALS: BP 137/82; TEMP 98.6; O2SAT 98
[2025-04-11 19:00] VITALS: BP 134/77; TEMP 98.2; O2SAT 99
[2025-04-12 06:00] VITALS: BP 151/81; TEMP 98.8; O2SAT 96
[2025-04-12] MEDS: ENOXAPARIN SODIUM 40 MG/0.4 ML DISP.SYRIN SQ SCH (08:09)
[2025-04-12] MEDS: MAGNESIUM HYDROXIDE 30 ML LIQUID UDC PO PRN (09:10)
[2025-04-12 11:09] LABS: PLATELET COUNT (AUTO) 391 K/uL (179-408); RED BLOOD CELL COUNT(AUTO) 2.86 MIL/uL (3.63-4.92); RED CELL DISTRIBUTION WIDTH 15.9 % (12.3-17.7); WHITE BLOOD COUNT (AUTO) 7.1 K/uL (3.8-11.8)
[2025-04-12 11:15] VITALS: BP 148/69; TEMP 99; O2SAT 95
[2025-04-12 11:25] LABS: CREATININE 0.6 mg/dL (0.6-1.3); SODIUM SERUM 139.0 mmol/L (136-145); UREA NITROGEN, BLOOD 7.0 mg/dL (7-18)
[2025-04-12 15:10] VITALS: BP 133/71; TEMP 98.5; O2SAT 95
[2025-04-12 19:00] VITALS: BP 122/40; TEMP 99; O2SAT 95
[2025-04-13 06:00] VITALS: BP 140/59; TEMP 98.3; O2SAT 98
[2025-04-13 07:22] LABS: PLATELET COUNT (AUTO) 382 K/uL (179-408); RED BLOOD CELL COUNT(AUTO) 2.77 MIL/uL (3.63-4.92); RED CELL DISTRIBUTION WIDTH 15.3 % (12.3-17.7); WHITE BLOOD COUNT (AUTO) 6.4 K/uL (3.8-11.8)
[2025-04-13 07:41] LABS: CREATININE 0.6 mg/dL (0.6-1.3); SODIUM SERUM 140.0 mmol/L (136-145); UREA NITROGEN, BLOOD 10.0 mg/dL (7-18)
[2025-04-13] MEDS: MIRALAX 17 GM POWD.PACK PO PRN (08:16)
[2025-04-13 09:10] LABS: EOSINOPHILS % (MANUAL) 5 % (0-8); LYMPHOCYTES % (MANUAL) 23 % (20-40); METAMYELOCYTES % 1 % (0-1); MONOCYTES % (MANUAL) 11 % (2-10); MYELOCYTES % 2 % (0-0); NEUTROPHILS % (MANUAL) 58 % (42-75); PLATELET ESTIMATE ADEQUATE
[2025-04-13 10:58] VITALS: BP 166/90; TEMP 98.4; O2SAT 98
[2025-04-13 15:12] VITALS: BP 153/69; TEMP 97.6; O2SAT 97
[2025-04-13 19:00] VITALS: BP 132/69; TEMP 98.2; O2SAT 97
[2025-04-14 06:00] VITALS: BP 118/52; TEMP 98; O2SAT 95
[2025-04-14 06:49] LABS: PLATELET COUNT (AUTO) 412 K/uL (179-408); RED BLOOD CELL COUNT(AUTO) 2.74 MIL/uL (3.63-4.92); RED CELL DISTRIBUTION WIDTH 15.7 % (12.3-17.7); WHITE BLOOD COUNT (AUTO) 7.0 K/uL (3.8-11.8)
[2025-04-14 07:05] LABS: CREATININE 0.6 mg/dL (0.6-1.3); SODIUM SERUM 140.0 mmol/L (136-145); UREA NITROGEN, BLOOD 11.0 mg/dL (7-18)
[2025-04-14 11:19] VITALS: BP 128/80; TEMP 98.1; O2SAT 97
[2025-04-14 15:26] VITALS: BP 143/77; TEMP 98.5; O2SAT 100
[2025-04-14 20:00] VITALS: BP 133/55; TEMP 99.3; O2SAT 98
[2025-04-15 05:00] VITALS: BP 151/82; TEMP 98.8; O2SAT 96
[2025-04-15 06:36] LABS: PLATELET COUNT (AUTO) 473 K/uL (179-408); RED BLOOD CELL COUNT(AUTO) 3.15 MIL/uL (3.63-4.92); RED CELL DISTRIBUTION WIDTH 15.3 % (12.3-17.7); WHITE BLOOD COUNT (AUTO) 8.9 K/uL (3.8-11.8)
[2025-04-15 06:58] LABS: CREATININE 0.6 mg/dL (0.6-1.3); SODIUM SERUM 140.0 mmol/L (136-145); UREA NITROGEN, BLOOD 11.0 mg/dL (7-18)
[2025-04-15 11:32] VITALS: BP 130/71
[2025-04-15 11:57] VITALS: TEMP 98.3; O2SAT 95
[2025-04-15] MEDS: MIRALAX 17 GM POWD.PACK PO SCH (12:00)
[2025-04-15] MEDS: DOCUSATE SODIUM 100 MG CAPSULE PO SCH (12:00)
[2025-04-15 15:17] VITALS: BP 116/60; TEMP 98.1; O2SAT 94
[2025-04-15 19:23] VITALS: BP 126/67; TEMP 98.1; O2SAT 95
[2025-04-16 05:40] VITALS: BP 141/60; TEMP 98; O2SAT 99
[2025-04-16 11:33] LABS: CREATININE 0.6 mg/dL (0.6-1.3); SODIUM SERUM 137.0 mmol/L (136-145); UREA NITROGEN, BLOOD 11.0 mg/dL (7-18)
[2025-04-16 13:13] LABS: PLATELET COUNT (AUTO) 440 K/uL (179-408); RED BLOOD CELL COUNT(AUTO) 2.99 MIL/uL (3.63-4.92); RED CELL DISTRIBUTION WIDTH 15.6 % (12.3-17.7); WHITE BLOOD COUNT (AUTO) 10.8 K/uL (3.8-11.8)
[2025-04-16 13:23] LABS: CREATININE 0.5 mg/dL (0.6-1.3); SODIUM SERUM 136.0 mmol/L (136-145); UREA NITROGEN, BLOOD 11.0 mg/dL (7-18)
[2025-04-16 13:29] LABS: ASPARTATE AMINOTRANSFERASE 18.0 U/L (15-37); TOTAL PROTEIN, SERUM 6.8 g/dL (6.4-8.2)
[2025-04-16] MEDS: MORPHINE SULFATE 4 MG/1 ML DISP.SYRIN IV PRN (14:48)
[2025-04-16] MEDS: VANCOMYCIN IV 1,000 MG in IV DEXTROSE 5% 250 ML IV SCH (14:50)
[2025-04-16 16:14] VITALS: BP 151/68; TEMP 98.1; O2SAT 97
[2025-04-16 18:54] LABS: *BILIRUBIN,URIN NEGATIVE (NEGATIVE); *BLOOD, URINE NEGATIVE (NEGATIVE); *CLARITY,URINE CLEAR (CLEAR); *KETONES,URINE NEGATIVE (NEGATIVE); *PROTEIN,URINE NEGATIVE (NEGATIVE); *UROBILINOGEN,URINE 0.2 E.U./dl (NORMAL); LEUKOCYTE ESTERASE ,URINE TRACE (NEGATIVE); NITRITE, URINE NEGATIVE (NEGATIVE); UGLUCOSE NEGATIVE (NEGATIVE)
[2025-04-16 18:57] LABS: *COLOR,URINE LIGHT YELLOW (YELLOW)
[2025-04-16 19:00] VITALS: BP 121/72; TEMP 98.5; O2SAT 95
[2025-04-16 19:05] LABS: SQUAMOUS EPITHELIAL CELL,UR FEW /HPF (NONE SEEN)
[2025-04-16 19:06] LABS: YEAST,URINE FEW /HPF (NONE SEEN)
[2025-04-17 04:00] VITALS: BP 141/72; TEMP 98.8; O2SAT 94
[2025-04-17 06:55] LABS: PLATELET COUNT (AUTO) 430 K/uL (179-408); RED BLOOD CELL COUNT(AUTO) 2.86 MIL/uL (3.63-4.92); RED CELL DISTRIBUTION WIDTH 15.5 % (12.3-17.7); WHITE BLOOD COUNT (AUTO) 9.1 K/uL (3.8-11.8)
[2025-04-17 07:16] LABS: CREATININE 0.5 mg/dL (0.6-1.3); SODIUM SERUM 138.0 mmol/L (136-145); UREA NITROGEN, BLOOD 8.0 mg/dL (7-18)
[2025-04-17 10:48] VITALS: BP 122/67; TEMP 98; O2SAT 99
[2025-04-17] MEDS: VANCOMYCIN IV 1,000 MG in IV DEXTROSE 5% 250 ML IV SCH (11:15)
[2025-04-17 15:25] VITALS: BP 135/67; TEMP 98.2; O2SAT 96
[2025-04-17 20:58] VITALS: BP 111/63; TEMP 98.5; O2SAT 98
[2025-04-18 06:01] VITALS: BP 119/58; TEMP 98; O2SAT 96
[2025-04-18] MEDS: ACIDOPHILUS/BULGARICUS CHEW TAB PO SCH (10:11)
[2025-04-18] MEDS: FLUCONAZOLE 200 MG/NS 100ML IV 200 MG in PREMIXED 1 EACH IV ONE (10:12)
[2025-04-18 12:05] VITALS: BP 143/66; TEMP 98; O2SAT 97
[2025-04-18 13:08] LABS: PLATELET COUNT (AUTO) 396 K/uL (179-408); RED BLOOD CELL COUNT(AUTO) 2.95 MIL/uL (3.63-4.92); RED CELL DISTRIBUTION WIDTH 15.3 % (12.3-17.7); WHITE BLOOD COUNT (AUTO) 9.9 K/uL (3.8-11.8)
[2025-04-18 13:22] LABS: ASPARTATE AMINOTRANSFERASE 19.0 U/L (15-37); CREATININE 0.6 mg/dL (0.6-1.3); SODIUM SERUM 134.0 mmol/L (136-145); TOTAL PROTEIN, SERUM 7.0 g/dL (6.4-8.2); UREA NITROGEN, BLOOD 8.0 mg/dL (7-18)
[2025-04-18 19:24] VITALS: BP 125/60; TEMP 98.7; O2SAT 95
[2025-04-19 04:26] LABS: CREATININE 0.5 mg/dL (0.6-1.3); SODIUM SERUM 134.0 mmol/L (136-145); UREA NITROGEN, BLOOD 7.0 mg/dL (7-18)
[2025-04-19 04:27] LABS: IRON, SERUM 19.0 ug/dL (50-175)
[2025-04-19 05:39] VITALS: BP 127/61; TEMP 98.3; O2SAT 94
[2025-04-19 11:08] VITALS: BP 131/81; TEMP 98; O2SAT 95
[2025-04-19] MEDS ORDERED: GADOTERATE MEGLUMINE 10 MMOL/20 ML VIAL IV ONE (13:31)
[2025-04-19 16:25] VITALS: BP 134/78
[2025-04-19 19:31] VITALS: BP 141/70; TEMP 99.1; O2SAT 94
[2025-04-20 06:00] VITALS: BP 130/43; TEMP 98.8; O2SAT 94
[2025-04-20 06:46] LABS: PLATELET COUNT (AUTO) 396 K/uL (179-408); RED BLOOD CELL COUNT(AUTO) 2.86 MIL/uL (3.63-4.92); RED CELL DISTRIBUTION WIDTH 15.6 % (12.3-17.7); WHITE BLOOD COUNT (AUTO) 7.6 K/uL (3.8-11.8)
[2025-04-20 07:17] LABS: ASPARTATE AMINOTRANSFERASE 15.0 U/L (15-37); CREATININE 0.6 mg/dL (0.6-1.3); SODIUM SERUM 135.0 mmol/L (136-145); TOTAL PROTEIN, SERUM 7.1 g/dL (6.4-8.2); UREA NITROGEN, BLOOD 6.0 mg/dL (7-18)
[2025-04-20 11:34] VITALS: BP 123/65; TEMP 98.1; O2SAT 97
[2025-04-20 16:00] VITALS: BP 121/72; TEMP 98.6; O2SAT 96
[2025-04-20 19:29] VITALS: BP 109/72; TEMP 98.5; O2SAT 96
[2025-04-20 19:50] VITALS: BP 134/96; TEMP 97.4; O2SAT 100
[2025-04-20 20:18] VITALS: O2SAT 96
[2025-04-20] MEDS ORDERED: ALTEPLASE 2 MG VIAL ONE (23:03)
[2025-04-20] MEDS: ALTEPLASE 2 MG VIAL XX STA (23:28)
[2025-04-21] MEDS: IV LACTATED RINGERS SOLUTION 1,000 ML IV PRN (00:33)
[2025-04-21 05:33] VITALS: BP 115/65; TEMP 98.8; O2SAT 94
[2025-04-21 06:15] VITALS: BP 139/60; TEMP 97.9; O2SAT 94
[2025-04-21 08:45] LABS: PLATELET COUNT (AUTO) 396 K/uL (179-408); RED BLOOD CELL COUNT(AUTO) 2.79 MIL/uL (3.63-4.92); RED CELL DISTRIBUTION WIDTH 15.6 % (12.3-17.7); WHITE BLOOD COUNT (AUTO) 7.0 K/uL (3.8-11.8)
[2025-04-21 08:58] LABS: CREATININE 0.5 mg/dL (0.6-1.3); SODIUM SERUM 139.0 mmol/L (136-145); UREA NITROGEN, BLOOD 7.0 mg/dL (7-18)
[2025-04-21 09:49] LABS: EOSINOPHILS % (MANUAL) 6 % (0-8); LYMPHOCYTES % (MANUAL) 11 % (20-40); METAMYELOCYTES % 1 % (0-1); MONOCYTES % (MANUAL) 5 % (2-10); MYELOCYTES % 1 % (0-0); NEUTROPHILS % (MANUAL) 76 % (42-75); PLATELET ESTIMATE ADEQUATE
[2025-04-21] MEDS ORDERED: KETOROLAC TROMETHAMINE 30 MG INJ IM ONE (16:15)
[2025-04-21] MEDS ORDERED: KETOROLAC TROMETHAMINE 30 MG INJ IVP ONE (16:15)
[2025-04-21] MEDS ORDERED: VANCOMYCIN IV 1,000 MG in IV DEXTROSE 5% 250 ML IV SCH (21:00)
== END 2025-04-21 09:05 | disposition short-term general hospital (02) | DRG 862 ==
LOC: UNDOADMIN 23:06 → DOU3 23:06 → TELE-TD3 23:06 → MEDSURG3 04-05 09:10
PROVIDERS: ADMIT Nurse Practitioner Acute Care; ATTEND Internal Medicine
PROC: 009U30Z Drainage of Spinal Canal with Drainage Device, Percutaneous Approach (ICD-10-PCS; principal; 2025-04-10)
PROC: 02HV33Z Insertion of Infusion Device into Superior Vena Cava, Percutaneous Approach (ICD-10-PCS; 2025-04-15)
DX: T81.43XA Infection following a procedure, organ and space surgical site, initial encounter (principal); A41.9 Sepsis, unspecified organism; G06.1 Intraspinal abscess and granuloma; B37.49 Other urogenital candidiasis; D68.59 Other primary thrombophilia; T81.44XA Sepsis following a procedure, initial encounter; T84.296D Other mechanical complication of internal fixation device of vertebrae, subsequent encounter; Z98.1 Arthrodesis status; Z88.2 Allergy status to sulfonamides; Z88.0 Allergy status to penicillin; Z87.39 Personal history of other diseases of the musculoskeletal system and connective tissue; M81.0 Age-related osteoporosis without current pathological fracture; I10 Essential (primary) hypertension; G47.00 Insomnia, unspecified; G89.4 Chronic pain syndrome; E78.5 Hyperlipidemia, unspecified; M41.9 Scoliosis, unspecified; Z74.09 Other reduced mobility; F32.A Depression, unspecified; M54.50 Low back pain, unspecified; R20.0 Anesthesia of skin
CPT/HCPCS: 36415; 36600; 70030-TC; 71045; 72131; 72158; 72192; 83550; 83605; 83735; 84100; 85025; 85610; 85651; 85730; 86140; 87040; 87070; 87077; 87086; 87205; 93005; 97535-GO-CO; A4606; A4663; A6213; A9575; G0378; J0692; J0696; J1450; J1650; J1956; J2250; J2270; J2997; J3010; J3373; J7040; J7050; J7120; Q9967

== ENCOUNTER 2025-04-29 10:14 | Inpatient (IN) | payer MEDICARE, BC ==
[~2025-04-29] VITALS: Ht 167.6 cm; Wt 72.6 kg
[~2025-04-29 10:14] MED LIST changes: -CARI250T9 PO; -DULO20CA PO; +LEVO750T46 PO
[2025-04-29 10:36] VITALS: BP 146/85; TEMP 98.2
[2025-04-29 10:54] VITALS: BP 146/85; TEMP 98.2
[2025-04-29 13:30] VITALS: BP 125/62; TEMP 98.2; O2SAT 97
[2025-04-29] MEDS ORDERED: CEFT2PIG IV (14:03)
[2025-04-29] MEDS ORDERED: [UNRECOGNIZED DRUG - OTHER] (14:04)
[2025-04-29] MEDS ORDERED: VANC750F IV (14:05)
[2025-04-29] MEDS ORDERED: MULT-225 PO (14:12)
[2025-04-29] MEDS ORDERED: MAGNESIUM HYDROXIDE 30 ML LIQUID UDC PO PRN (14:45)
[2025-04-29] MEDS ORDERED: ONDANSETRON ODT 4 MG TAB.RAPDIS SL PRN (14:45)
[2025-04-29] MEDS ORDERED: FLEET ENEMA 133 ML BOTTLE RC PRN (14:45)
[2025-04-29] MEDS ORDERED: BISACODYL 10 MG SUPP.RECT RC PRN (14:45)
[2025-04-29] MEDS: AMLODIPINE 5 MG TABLET PO SCH (15:43)
[2025-04-29] MEDS: LIDOCAINE 5% PATCH TD SCH (15:43)
[2025-04-29] MEDS: TAMSULOSIN HCL 0.4 MG CAP.SR.24H PO SCH (16:23)
[2025-04-29] MEDS: BISACODYL 5 MG TABLET.DR PO SCH (16:23)
[2025-04-29] MEDS: VANCOMYCIN HCL 750 MG in IV DEXTROSE 5% 250 ML IV SCH (16:24)
[2025-04-29] MEDS: GABAPENTIN 400 MG CAPSULE PO SCH (16:24)
[2025-04-29] MEDS: HYDROMORPHONE HCL 2 MG TABLET PO PRN (16:28)
[2025-04-29] MEDS: SENNOSIDES 1 TABLET PO SCH (21:04)
[2025-04-29] MEDS: LOSARTAN POTASSIUM 25 MG TABLET PO SCH (21:05)
[2025-04-29] MEDS: ATORVASTATIN 40 MG TABLET PO SCH (21:07)
[2025-04-29] MEDS: HYDROCODONE/APAP 10-325 MG TABLET PO PRN (21:07)
[2025-04-29 21:56] VITALS: BP 128/71; TEMP 98.3; O2SAT 96
[2025-04-29] MEDS: TEMAZEPAM 15 MG CAPSULE PO PRN (23:59)
[2025-04-30 07:23] VITALS: BP 112/68; TEMP 98.2; O2SAT 98
[2025-04-30 07:51] VITALS: BP 129/65; TEMP 98; O2SAT 95
[2025-04-30] MEDS: MULTIVIT, IRON, MIN NO. 8, FA TABLET PO SCH (08:51)
[2025-04-30] MEDS: MIRALAX 17 GM POWD.PACK PO SCH (08:51)
[2025-04-30] MEDS: PANTOPRAZOLE SODIUM 40 MG TABLET.DR PO SCH (08:51)
[2025-04-30] MEDS: THIAMINE HCL 100 MG TABLET PO SCH (08:51)
[2025-04-30] MEDS ORDERED: CEFTRIAXONE 500 MG VIAL IV SCH (09:00)
[2025-04-30] MEDS ORDERED: NALOXONE HCL 0.4 MG/ML AMPUL IV PRN (13:45)
[2025-04-30] MEDS: OXYCODONE HCL 20 MG TAB.SR.12H PO SCH (14:08)
[2025-04-30 16:11] VITALS: BP 133/70; TEMP 97; O2SAT 97
[2025-04-30] MEDS: HYDROMORPHONE HCL 2 MG TABLET PO PRN (16:59)
[2025-04-30 20:38] VITALS: BP 121/62; TEMP 98.5; O2SAT 95
[2025-05-01] MEDS: PANTOPRAZOLE SODIUM 40 MG TABLET.DR PO SCH (06:23)
[2025-05-01 06:45] VITALS: BP 116/55; TEMP 97.8; O2SAT 94
[2025-05-01 08:00] VITALS: BP 121/70; TEMP 97.7; O2SAT 96
[2025-05-01 16:43] LABS: PLATELET COUNT (AUTO) 365 K/uL (179-408); RED BLOOD CELL COUNT(AUTO) 3.20 MIL/uL (3.63-4.92); RED CELL DISTRIBUTION WIDTH 16.2 % (12.3-17.7); WHITE BLOOD COUNT (AUTO) 7.8 K/uL (3.8-11.8)
[2025-05-01 16:50] LABS: CREATININE 0.6 mg/dL (0.6-1.3); SODIUM SERUM 131.0 mmol/L (136-145); UREA NITROGEN, BLOOD 10.0 mg/dL (7-18)
[2025-05-01 20:28] VITALS: BP 114/49; TEMP 97.9; O2SAT 96
[2025-05-02 05:26] VITALS: BP 121/59; TEMP 98.2; O2SAT 96
[2025-05-02 07:36] VITALS: BP 121/61; TEMP 98.4; O2SAT 96
[2025-05-02 16:30] VITALS: BP 100/58; TEMP 97.4; O2SAT 95
[2025-05-02 20:00] VITALS: BP 91/58; TEMP 97.8; O2SAT 97
[2025-05-03 05:00] VITALS: BP 137/80; TEMP 98.3; O2SAT 96
[2025-05-03 08:00] VITALS: BP 123/66; TEMP 98.1; O2SAT 97
[2025-05-03] MEDS ORDERED: ACETAMINOPHEN 325 MG TABLET PO PRN (11:30)
[2025-05-03 16:00] VITALS: BP 106/58; TEMP 97.8; O2SAT 98
[2025-05-03 19:49] VITALS: BP 133/63; TEMP 98.4; O2SAT 96
[2025-05-04 05:13] VITALS: BP 107/67; TEMP 98.2; O2SAT 95
[2025-05-04 06:33] LABS: PLATELET COUNT (AUTO) 302 K/uL (179-408); RED BLOOD CELL COUNT(AUTO) 2.86 MIL/uL (3.63-4.92); RED CELL DISTRIBUTION WIDTH 16.4 % (12.3-17.7); WHITE BLOOD COUNT (AUTO) 7.6 K/uL (3.8-11.8)
[2025-05-04 06:42] LABS: CREATININE 0.6 mg/dL (0.6-1.3); SODIUM SERUM 136.0 mmol/L (136-145); UREA NITROGEN, BLOOD 8.0 mg/dL (7-18)
[2025-05-04 08:30] VITALS: BP 98/64; TEMP 98.1; O2SAT 96
[2025-05-04 16:11] VITALS: BP 137/67; TEMP 97.9; O2SAT 99
[2025-05-04 20:55] VITALS: BP 135/70; TEMP 98.2; O2SAT 97
[2025-05-05 06:33] VITALS: BP 117/60; TEMP 98; O2SAT 95
[2025-05-05 07:54] VITALS: BP 104/62; TEMP 97.7; O2SAT 98
[2025-05-05 16:17] VITALS: BP 135/74; TEMP 97.6; O2SAT 97
[2025-05-05 20:00] VITALS: BP 123/70; TEMP 98; O2SAT 96
[2025-05-06 05:20] VITALS: BP 92/76; TEMP 98; O2SAT 98
[2025-05-06 08:00] VITALS: BP 107/56; TEMP 98.1; O2SAT 95
[2025-05-06 17:00] VITALS: BP 118/63; TEMP 97.7; O2SAT 96
[2025-05-06 21:21] VITALS: BP 147/61; TEMP 98; O2SAT 97
[2025-05-07 07:08] VITALS: BP 99/46; TEMP 98.1; O2SAT 94
[2025-05-07 08:00] VITALS: BP 106/67; TEMP 98; O2SAT 95
[2025-05-07 08:43] LABS: CREATININE 0.7 mg/dL (0.6-1.3); SODIUM SERUM 135.0 mmol/L (136-145); UREA NITROGEN, BLOOD 9.0 mg/dL (7-18)
[2025-05-07 16:51] VITALS: BP 116/56; TEMP 98.4; O2SAT 96
[2025-05-07 22:46] VITALS: BP 113/55; TEMP 98.2; O2SAT 97
[2025-05-08 06:58] VITALS: BP 106/60; TEMP 98; O2SAT 98
[2025-05-08 08:00] VITALS: BP 108/51; TEMP 97.8; O2SAT 98
[2025-05-08 16:00] VITALS: BP 110/56; TEMP 98.3; O2SAT 96
[2025-05-08 20:43] VITALS: BP 115/70; TEMP 97.9; O2SAT 98
[2025-05-09 06:43] VITALS: BP 106/50; TEMP 97.9; O2SAT 96
[2025-05-09 07:46] VITALS: BP 98/55; TEMP 97.8; O2SAT 98
[2025-05-09 16:00] VITALS: BP 103/59; TEMP 97.8; O2SAT 98
[2025-05-09 21:57] VITALS: BP 110/58; TEMP 98.2; O2SAT 94
[2025-05-10 07:00] VITALS: BP 122/62; TEMP 97.9; O2SAT 98
[2025-05-10 08:45] VITALS: BP 116/64; TEMP 98.7; O2SAT 95
[2025-05-10 09:23] VITALS: BP 116/64
== END 2025-05-10 13:40 | DRG 949 ==
PROVIDERS: ADMIT Physical Medicine & Rehabilitation Pain Medicine; ATTEND Physical Medicine & Rehabilitation Pain Medicine
DX: T81.43XD Infection following a procedure, organ and space surgical site, subsequent encounter (principal); G06.2 Extradural and subdural abscess, unspecified; S32.301D Unspecified fracture of right ilium, subsequent encounter for fracture with routine healing; X58.XXXD Exposure to other specified factors, subsequent encounter; Y83.8 Other surgical procedures as the cause of abnormal reaction of the patient, or of later complication, without mention of misadventure at the time of the procedure; M81.0 Age-related osteoporosis without current pathological fracture; I10 Essential (primary) hypertension; D64.9 Anemia, unspecified; G47.00 Insomnia, unspecified; G89.29 Other chronic pain; Z88.0 Allergy status to penicillin; Z88.2 Allergy status to sulfonamides; Z98.1 Arthrodesis status; M41.87 Other forms of scoliosis, lumbosacral region; Z87.440 Personal history of urinary (tract) infections; Z87.11 Personal history of peptic ulcer disease; R53.1 Weakness
CPT/HCPCS: 36415; 85025; 97535-GO-CO; J0696; J7050; Q0162